=== PATIENT | female | born 1975 | race Caucasian/White ===

== ENCOUNTER 2016-07-25 19:34 | Emergency (ER) | payer SELFPAY ==
[~2016-07-25] VITALS: Ht 177.8 cm; Wt 104.0 kg
[2016-07-25 19:34] VITALS: Ht 177.8 cm; Wt 104.0 kg
--- NOTE | 2016-07-25 19:35 | NUR ---
PROVIDER DR MARTINEZ IN ROOM TO SEE PT
--- OUTSIDE RECORDS SUMMARY | 2016-07-25 19:38 | XMS REPORT | Continuity of Care Document ---
Author Author [facility] Address Unknown Phone Unavailable Allergies Active Description Code Type Severity Reaction Onset Reported/Identified Relationship to Patient Clinical Status Yes No Known Drug Allergies [id number] Drug Allergy Unknown N/ A 03/22/2013 Yes Iodinated Contrast Media - IV Dye [id number] Drug Allergy Moderate Rash 11/25/2014 Yes latex [id number] Drug Allergy Mild rash 03/06/2015 Medications Problems Date Dx Coded Attending Type Code Diagnosis Diagnosed By 03/22/2013 EDGARDO YIN, CESAR Fitch Ot 487.1 03/22/2013 CESAR REYNOSO MD Ot 490 03/22/2013 CESAR REYNOSO MD Ot 780.60 09/13/2014 JANNIE BARKLEY MD Ot 782.3 10/08/2014 MACY REYES MD Ot 785.2 11/13/2014 GATO BOUDREAUX MD, MACY Pal Ot 785.2 11/13/2014 Winston Baca S Ot 424.0 11/13/2014 Toon, Winston S Ot V15.1 11/13/2014 Toon, Winston S Ot V57.89 11/13/2014 GATO BOUDREAUX MD, MACY Pal Ot 285.9 11/13/2014 MACY REYES MD Ot 305.1 11/13/2014 MACY REYES MD Ot 424.0 11/13/2014 MACY REYES MD Ot 429.9 11/26/2014 EVA BHATIA MD Ot 401.9 11/26/2014 EVA BHATIA MD Ot 428.0 11/26/2014 EVA BHATIA MD Ot 782.0 11/26/2014 EVA BHATIA MD Ot 786.50 11/26/2014 EVA BHATIA MD Ot 786.59 11/30/2014 EVA BHATIA MD Ot 786.50 12/02/2014 Winston Baca S Ot 424.0 12/02/2014 Toon, Winston S Ot V15.1 12/02/2014 Toon, Winston S Ot V57.89 12/05/2014 Toon, Winston S Ot 424.0 12/05/2014 Toon, Winston S Ot V15.1 12/05/2014 Toon, Winston S Ot V57.89 12/08/2014 Toon, Winston S Ot 424.0 12/08/2014 Toon, Winston S Ot V15.1 12/08/2014 Toon, Winston S Ot V57.89 12/10/2014 Toon, Winston S Ot 424.0 12/10/2014 Toon, Winston S Ot V15.1 12/10/2014 Toon, Winston S Ot V57.89 01/18/2015 FRANKLIN YIN, HANNAH Garzon Ot I42.0 01/18/2015 FRANKLIN YIN, HANNAH Garzon Ot I49.3 01/18/2015 HANNAH REID MD Ot R07.9 03/06/2015 Toon, Winston S Ot 424.0 03/06/2015 Toon, Winston S Ot V15.1 03/06/2015 Toon, Winston S Ot V57.89 03/06/2015 JANNETTE YIN, EVA Cuevas Ot I10 03/06/2015 EVA BHATIA MD Ot I42.9 03/06/2015 EVA BHATIA MD Ot I44.7 03/06/2015 EVA BHATIA MD Ot I49.3 03/06/2015 EVA BHATIA MD Ot I95.9 03/06/2015 EVA BHATIA MD Ot R51 03/23/2015 MACY REYES MD Ot I34.0 03/23/2015 MACY REYES MD Ot I51.9 03/23/2015 MACY REYES MD Ot R05 03/23/2015 MACY REYES MD Ot R06.00 Procedures Results Encounters ACCT No. Visit Date/Time Discharge Status Pt. Type Provider Facility Loc./Unit Complaint [id number] 03/06/2015 21:57:00 2015 23:52:00 DIS Emergency JANNETTE YIN, [facility] ED [id number] 02/04/2015 10:38:00 2014 23:59:59 CLS Outpatient GATO BOUDREAUX MD, [facility] [id number] 01/17/2015 20:27:00 2014 01:21:00 DIS Emergency FRANKLIN YIN, HANNAH Garzon [facility] ED [id number] 12/04/2014 09:30:00 2014 23:59:59 CLS Preadmit [facility] [id number] 10/30/2014 09:30:00 2014 00:01:00 [facility] [id number] 11/26/2014 01:50:00 2014 23:59:59 CLS Outpatient JANNETTE YIN, [facility] [id number] 11/25/2014 22:58:00 2014 02:10:00 DIS Emergency JANNETTE YIN, [facility] ED [id number] 10/26/2014 09:35:00 2014 23:59:59 CLS Outpatient GATO BOUDREAUX MD, [facility] LAB [id number] 09/17/2014 10:54:00 2014 23:59:59 CLS Outpatient GATO BOUDREAUX MD, [facility] LAB [id number] 09/13/2014 20:25:00 2014 23:13:00 DIS Emergency FILIPPO YIN, JANNIE Shameka [facility] ED [id number] 03/22/2013 08:28:00 2013 09:40:00 DIS Emergency EDGARDO YIN, CESAR Fitch [facility] ED
--- OUTSIDE RECORDS SUMMARY | 2016-07-25 19:38 | XMS REPORT | Continuity Of Care Document ---
Author Author [facility] Organization [facility] Address [address] [place] [address] Phone Care Team Providers Care Keyboard Specialist Name Role Phone Savanah ROBB MD AT [facility], [facility] Results Lab Results Visit/Account #[id number] (October 12, 2014 4:58am - October 18, 2014 11:25am) Test Result Date/Time CG8 ARTERIAL 21102-9: STYPE ART October 12, 2014 7:46am ART October 12, 2014 8:16am ART October 12, 2014 8:34am ART October 12, 2014 9:10am ART October 12, 2014 9:31am ART October 12, 2014 10:02am ART October 12, 2014 10:18am ART October 12, 2014 10:31am ART October 12, 2014 10:44am ART October 12, 2014 11:42am HEMOGLOBIN(12.0-16.0 G/DL) 12.2 G/DL October 12, 2014 7:46am 10.9 G/DL October 12, 2014 8:16am 8.8 G/DL Result Comments: CPB Applied October 12, 2014 8:34am 7.5 G/DL Result Comments: CPB Applied October 12, 2014 9:10am 8.8 G/DL Result Comments: CPB Applied October 12, 2014 9:31am 8.8 G/DL Result Comments: CPB Applied October 12, 2014 10:02am 8.8 G/DL Result Comments: CPB Applied October 12, 2014 10:18am 8.2 G/DL Result Comments: CPB Applied October 12, 2014 10:31am 8.5 G/DL Result Comments: CPB Applied October 12, 2014 10:44am 9.5 G/DL Result Comments: CPB Applied October 12, 2014 11:42am HEMATOCRIT(36.0-48.0 %) 36.0 % October 12, 2014 7:46am 32.0 % October 12, 2014 8:16am 26.0 % Result Comments: CPB Applied October 12, 2014 8:34am 22.0 % Result Comments: CPB Applied October 12, 2014 9:10am 26.0 % Result Comments: CPB Applied October 12, 2014 9:31am 26.0 % Result Comments: CPB Applied October 12, 2014 10:02am 26.0 % Result Comments: CPB Applied October 12, 2014 10:18am 24.0 % Result Comments: CPB Applied October 12, 2014 10:31am 25.0 % Result Comments: CPB Applied October 12, 2014 10:44am 28.0 % Result Comments: CPB Applied October 12, 2014 11:42am 23648-6: GLUCOSE(70-110 MG/DL) 117 MG/DL October 12, 2014 7:46am 122 MG/DL October 12, 2014 8:16am 111 MG/DL October 12, 2014 8:34am 125 MG/DL October 12, 2014 9:10am 137 MG/DL October 12, 2014 9:31am 172 MG/DL October 12, 2014 10:02am 176 MG/DL October 12, 2014 10:18am 167 MG/DL October 12, 2014 10:31am 159 MG/DL October 12, 2014 10:44am 219 MG/DL October 12, 2014 11:42am 13869-7: SODIUM(135-145 MMOL/L) 136 MMOL/L October 12, 2014 7:46am 135 MMOL/L October 12, 2014 8:16am 131 MMOL/L October 12, 2014 8:34am 128 MMOL/L October 12, 2014 9:10am 129 MMOL/L October 12, 2014 9:31am 127 MMOL/L October 12, 2014 10:02am 128 MMOL/L October 12, 2014 10:18am 131 MMOL/L October 12, 2014 10:31am 129 MMOL/L October 12, 2014 10:44am 135 MMOL/L October 12, 2014 11:42am 93817-3: POTASSIUM(3.6-5.0 MMOL/L) 3.6 MMOL/L October 12, 2014 7:46am 3.6 MMOL/L October 12, 2014 8:16am 3.6 MMOL/L October 12, 2014 8:34am 5.3 MMOL/L October 12, 2014 9:10am 6.0 MMOL/L October 12, 2014 9:31am 8.0 MMOL/L October 12, 2014 10:02am 7.9 MMOL/L October 12, 2014 10:18am 6.8 MMOL/L October 12, 2014 10:31am 6.1 MMOL/L October 12, 2014 10:44am 4.4 MMOL/L October 12, 2014 11:42am IONIZED CALCIUM(1.12-1.32 mmol/L) 1.15 mmol/L October 12, 2014 7:46am 1.09 mmol/L October 12, 2014 8:16am 0.93 mmol/L October 12, 2014 8:34am 0.83 mmol/L October 12, 2014 9:10am 0.83 mmol/L October 12, 2014 9:31am 0.83 mmol/L October 12, 2014 10:02am 0.82 mmol/L October 12, 2014 10:18am 0.76 mmol/L October 12, 2014 10:31am 1.08 mmol/L October 12, 2014 10:44am 1.03 mmol/L October 12, 2014 11:42am 00031-3: PH(7.35-7.45) 7.298 October 12, 2014 7:46am 7.248 October 12, 2014 8:16am 7.329 October 12, 2014 8:34am 7.360 October 12, 2014 9:10am 7.363 October 12, 2014 9:31am 7.418 October 12, 2014 10:02am 7.427 October 12, 2014 10:18am 7.495 October 12, 2014 10:31am 7.442 October 12, 2014 10:44am 7.358 October 12, 2014 11:42am PCO2(35-45 mmHg) 48.7 mmHg October 12, 2014 7:46am 55.8 mmHg October 12, 2014 8:16am 43.3 mmHg October 12, 2014 8:34am 43.3 mmHg October 12, 2014 9:10am 42.5 mmHg October 12, 2014 9:31am 33.4 mmHg October 12, 2014 10:02am 32.7 mmHg October 12, 2014 10:18am 32.1 mmHg October 12, 2014 10:31am 35.8 mmHg October 12, 2014 10:44am 43.2 mmHg October 12, 2014 11:42am 85918-8: PO2(80-105 mmHg) 483 mmHg October 12, 2014 7:46am 392 mmHg October 12, 2014 8:16am 574 mmHg October 12, 2014 8:34am 605 mmHg October 12, 2014 9:10am 643 mmHg October 12, 2014 9:31am 378 mmHg October 12, 2014 10:02am 330 mmHg October 12, 2014 10:18am 331 mmHg October 12, 2014 10:31am 359 mmHg October 12, 2014 10:44am 272 mmHg October 12, 2014 11:42am HCO3(22-26 MMOL/L) 23.8 MMOL/L October 12, 2014 7:46am 24.3 MMOL/L October 12, 2014 8:16am 22.8 MMOL/L October 12, 2014 8:34am 24.5 MMOL/L October 12, 2014 9:10am 24.2 MMOL/L October 12, 2014 9:31am 21.6 MMOL/L October 12, 2014 10:02am 21.6 MMOL/L October 12, 2014 10:18am 24.7 MMOL/L October 12, 2014 10:31am 24.4 MMOL/L October 12, 2014 10:44am 24.2 MMOL/L October 12, 2014 11:42am TCO2(23-27 MMOL/L) 25 MMOL/L October 12, 2014 7:46am 26 MMOL/L October 12, 2014 8:16am 24 MMOL/L October 12, 2014 8:34am 26 MMOL/L October 12, 2014 9:10am 25 MMOL/L October 12, 2014 9:31am 23 MMOL/L October 12, 2014 10:02am 23 MMOL/L October 12, 2014 10:18am 26 MMOL/L October 12, 2014 10:31am 25 MMOL/L October 12, 2014 10:44am 26 MMOL/L October 12, 2014 11:42am SO2C(95-98 %) 100 % October 12, 2014 7:46am 100 % October 12, 2014 8:16am 100 % October 12, 2014 8:34am 100 % October 12, 2014 9:10am 100 % October 12, 2014 9:31am 100 % October 12, 2014 10:02am 100 % October 12, 2014 10:18am 100 % October 12, 2014 10:31am 100 % October 12, 2014 10:44am 100 % October 12, 2014 11:42am 1922-4: ABG BASE DEFICIT(0-30 mmol/L) 3 mmol/L October 12, 2014 7:46am 3 mmol/L October 12, 2014 8:16am 3 mmol/L October 12, 2014 8:34am 1 mmol/L October 12, 2014 9:10am 1 mmol/L October 12, 2014 9:31am 3 mmol/L October 12, 2014 10:02am 3 mmol/L October 12, 2014 10:18am 1 mmol/L October 12, 2014 11:42am 1927-3: ABG BASE EXCESS(0-30 mmol/L) 1 mmol/L October 12, 2014 10:31am 0 mmol/L October 12, 2014 10:44am CG8AR 89276-7: STYPE ART October 12, 2014 1:14pm HEMOGLOBIN(12.0-16.0 G/DL) 11.2 G/DL October 12, 2014 1:14pm HEMATOCRIT(36.0-48.0 %) 33.0 % October 12, 2014 1:14pm 09740-5: GLUCOSE(70-110 MG/DL) 260 MG/DL October 12, 2014 1:14pm 36820-5: SODIUM(135-145 MMOL/L) 135 MMOL/L October 12, 2014 1:14pm 60413-9: POTASSIUM(3.6-5.0 MMOL/L) 4.5 MMOL/L October 12, 2014 1:14pm IONIZED CALCIUM(1.12-1.32 mmol/L) 0.97 mmol/L October 12, 2014 1:14pm 70232-9: PH(7.35-7.45) 7.389 October 12, 2014 1:14pm PCO2(35-45 mmHg) 37.7 mmHg October 12, 2014 1:14pm 30480-8: PO2(80-105 mmHg) 105 mmHg October 12, 2014 1:14pm HCO3(22-26 MMOL/L) 22.8 MMOL/L October 12, 2014 1:14pm TCO2(23-27 MMOL/L) 24 MMOL/L October 12, 2014 1:14pm SO2C(95-98 %) 98 % October 12, 2014 1:14pm 1922-4: ABG BASE DEFICIT(0-30 mmol/L) 2 mmol/L October 12, 2014 1:14pm FIO2(%) 70 % October 12, 2014 1:14pm PEEP(CM H2O) 5 CM H2O October 12, 2014 1:14pm TIDAL VOLUME(ML) 800 ML October 12, 2014 1:14pm POCGL POCGL(70-105 MG/DL) 256 MG/DL October 12, 2014 3:44pm 232 MG/DL October 12, 2014 4:47pm 167 MG/DL October 12, 2014 6:06pm 129 MG/DL October 12, 2014 7:06pm 158 MG/DL October 12, 2014 8:12pm 121 MG/DL October 12, 2014 9:10pm 101 MG/DL October 12, 2014 10:14pm 164 MG/DL October 12, 2014 11:16pm 207 MG/DL October 13, 2014 12:15am 98 MG/DL October 13, 2014 1:02am 91 MG/DL October 13, 2014 2:04am 90 MG/DL October 13, 2014 3:06am 104 MG/DL October 13, 2014 4:11am 101 MG/DL October 13, 2014 5:18am 102 MG/DL October 13, 2014 6:15am 113 MG/DL October 13, 2014 7:13am 112 MG/DL October 13, 2014 8:03am 131 MG/DL October 13, 2014 10:42am 117 MG/DL October 13, 2014 5:02pm 115 MG/DL October 13, 2014 9:32pm 125 MG/DL October 14, 2014 5:42am 3184-9: ACTIVATED CLOTTING TIME 3184-9: ACTIVATED CLOTTING TIME(SECONDS) 138 SECONDS Result Comments: REFERENCE RANGES: BASELINE 74-125 SECONDS HEPARIN TREATED CCL 300-400 SECONDS HEPARIN TREATED CVOR >400 SECONDS October 12, 2014 7:45am 551 SECONDS Result Comments: REFERENCE RANGES: BASELINE 74-125 SECONDS HEPARIN TREATED CCL 300-400 SECONDS HEPARIN TREATED CVOR >400 SECONDS October 12, 2014 8:15am 568 SECONDS Result Comments: REFERENCE RANGES: BASELINE 74-125 SECONDS HEPARIN TREATED CCL 300-400 SECONDS HEPARIN TREATED CVOR >400 SECONDS October 12, 2014 8:34am 613 SECONDS Result Comments: REFERENCE RANGES: BASELINE 74-125 SECONDS HEPARIN TREATED CCL 300-400 SECONDS HEPARIN TREATED CVOR >400 SECONDS October 12, 2014 9:10am 641 SECONDS Result Comments: REFERENCE RANGES: BASELINE 74-125 SECONDS HEPARIN TREATED CCL 300-400 SECONDS HEPARIN TREATED CVOR >400 SECONDS October 12, 2014 9:30am 469 SECONDS Result Comments: REFERENCE RANGES: BASELINE 74-125 SECONDS HEPARIN TREATED CCL 300-400 SECONDS HEPARIN TREATED CVOR >400 SECONDS October 12, 2014 10:02am 531 SECONDS Result Comments: REFERENCE RANGES: BASELINE 74-125 SECONDS HEPARIN TREATED CCL 300-400 SECONDS HEPARIN TREATED CVOR >400 SECONDS October 12, 2014 10:18am 117 SECONDS Result Comments: REFERENCE RANGES: BASELINE 74-125 SECONDS HEPARIN TREATED CCL 300-400 SECONDS HEPARIN TREATED CVOR >400 SECONDS October 12, 2014 11:41am 90933-4: COMPLETE BLOOD COUNT WHITE BLOOD COUNT(4.0-11.0 10E3/UL) 22.3 10E3/UL October 13, 2014 4:10am 14.6 10E3/UL October 14, 2014 5:38am 7.0 10E3/UL October 15, 2014 3:57am 7.8 10E3/UL October 16, 2014 4:09am 5.8 10E3/UL October 17, 2014 7:24am RED BLOOD COUNT(4.00-5.20 10E6/UL) 3.05 10E6/UL October 13, 2014 4:10am 3.23 10E6/UL October 14, 2014 5:38am 2.89 10E6/UL October 15, 2014 3:57am 2.89 10E6/UL October 16, 2014 4:09am 2.92 10E6/UL October 17, 2014 7:24am HEMOGLOBIN(12.0-16.0 G/DL) 8.9 G/DL October 13, 2014 4:10am 9.3 G/DL October 14, 2014 5:38am 8.4 G/DL October 15, 2014 3:57am 8.3 G/DL October 16, 2014 4:09am 8.4 G/DL October 17, 2014 7:24am HEMATOCRIT(36.0-46.0 %) 27.9 % October 13, 2014 4:10am 29.7 % October 14, 2014 5:38am 26.4 % October 15, 2014 3:57am 26.0 % October 16, 2014 4:09am 26.1 % October 17, 2014 7:24am MEAN CORPUSCULAR VOLUME(82.0-100.0 FL) 91.5 FL October 13, 2014 4:10am 92.0 FL October 14, 2014 5:38am 91.3 FL October 15, 2014 3:57am 90.0 FL October 16, 2014 4:09am 89.4 FL October 17, 2014 7:24am 82584-0: MEAN CORPUSCULAR HEMOGLOBIN(26.0-34.0 PG) 29.2 PG October 13, 2014 4:10am 28.8 PG October 14, 2014 5:38am 29.1 PG October 15, 2014 3:57am 28.7 PG October 16, 2014 4:09am 28.8 PG October 17, 2014 7:24am MEAN CORPUSCULAR HGB CONC(31.5-36.5 G/DL) 31.9 G/DL October 13, 2014 4:10am 31.3 G/DL October 14, 2014 5:38am 31.8 G/DL October 15, 2014 3:57am 31.9 G/DL October 16, 2014 4:09am 32.2 G/DL October 17, 2014 7:24am RED CELL DISTRIBUTION WIDTH(11.5-14.5 %) 15.5 % October 13, 2014 4:10am 15.7 % October 14, 2014 5:38am 15.6 % October 15, 2014 3:57am 15.5 % October 16, 2014 4:09am 15.7 % October 17, 2014 7:24am 777-3: PLATELET COUNT(150-450 10E3/UL) 128 10E3/UL October 13, 2014 4:10am 105 10E3/UL October 14, 2014 5:38am 88 10E3/UL October 15, 2014 3:57am 112 10E3/UL October 16, 2014 4:09am 132 10E3/UL October 17, 2014 7:24am MEAN PLATELET VOLUME(8.2-12.4 FL) 10.2 FL October 13, 2014 4:10am 10.8 FL October 14, 2014 5:38am 10.4 FL October 15, 2014 3:57am 10.3 FL October 16, 2014 4:09am 10.1 FL October 17, 2014 7:24am NUCLEATED RBCS (AUTO)(0-0 %) 0 % October 13, 2014 4:10am 0 % October 14, 2014 5:38am 0 % October 15, 2014 3:57am 0 % October 16, 2014 4:09am 0 % October 17, 2014 7:24am 777-3: PLATELET COUNT 777-3: PLATELET COUNT(150-450 10E3/UL) 164 10E3/UL October 12, 2014 11:38am 171 10E3/UL October 12, 2014 1:11pm 17249-1: PROTHROMBIN TIME WITH INR PROTHROMBIN TIME(12.1-14.0 SEC) 18.9 SEC October 12, 2014 11:38am 02381-0: INR 1.56 Result Comments: INR reference interval applies to patients on anticoagulant therapy. Suggested INR therapeutic range for oral anticoagulant therapy: (Stabilized anticoagulated patients) Routine Therapy: 2.0 to 3.0 Recurrent Myocardial Infarction: 2.5 to 3.5 Mechanical Prosthetic Valves: 2.5 to 3.5 October 12, 2014 11:38am PARTIAL THROMBOPLASTIN TIME PARTIAL THROMBOPLASTIN TIME(22.2-37.4 SEC) 37.1 SEC October 12, 2014 11:38am FIBRINOGEN FIBRINOGEN(229-463 MG/DL) 216 MG/DL October 12, 2014 11:38am URINALYSIS, DIPSTICK INF CNTRL 5778-6: COLOR,URINE YELLOW October 12, 2014 7:05am 48632-0: CLARITY,URINE SL CLOUDY October 12, 2014 7:05am GLUCOSE, URINE(NEGATIVE MG/DL) NEGATIVE MG/DL October 12, 2014 7:05am URINE BILIRUBIN(NEGATIVE) NEGATIVE October 12, 2014 7:05am 44345-7: KETONES,URINE(NEGATIVE MG/DL) NEGATIVE MG/DL October 12, 2014 7:05am 2965-2: URINE SPECIFIC GRAVITY(1.001-1.035) 1.025 October 12, 2014 7:05am 79073-8: URINE BLOOD(NEGATIVE) NEGATIVE October 12, 2014 7:05am 2756-5: URINE PH(5.0-9.0) 5.0 October 12, 2014 7:05am URINE PROTEIN(Less than 20 MG/DL) NEGATIVE MG/DL October 12, 2014 7:05am URINE UROBILINOGEN(0.2-1.0 MG/DL) 0.2 MG/DL October 12, 2014 7:05am URINE NITRITE(NEGATIVE) NEGATIVE October 12, 2014 7:05am 5799-2: LEUKOCYTE ESTERASE ,URINE(NEGATIVE) NEGATIVE October 12, 2014 7:05am 630-4: URINE CULTURE NOT INDICATED October 12, 2014 7:05am BASIC METABOLIC PANEL 68604-8: GLUCOSE(70-110 MG/DL) 102 MG/DL October 13, 2014 4:10am 121 MG/DL October 14, 2014 5:38am 95 MG/DL October 15, 2014 3:57am 102 MG/DL October 16, 2014 4:09am 86 MG/DL October 17, 2014 7:23am 88 MG/DL October 18, 2014 6:17am BLOOD UREA NITROGEN(6-20 MG/DL) 15 MG/DL October 13, 2014 4:10am 13 MG/DL October 14, 2014 5:38am 14 MG/DL October 15, 2014 3:57am 16 MG/DL October 16, 2014 4:09am 18 MG/DL October 17, 2014 7:23am 24 MG/DL October 18, 2014 6:17am 74928-5: CREATININE(0.50-1.20 MG/DL) 0.75 MG/DL October 13, 2014 4:10am 0.67 MG/DL October 14, 2014 5:38am 0.66 MG/DL October 15, 2014 3:57am 0.67 MG/DL October 16, 2014 4:09am 0.70 MG/DL October 17, 2014 7:23am 0.91 MG/DL October 18, 2014 6:17am 17920-1: EST GLOMERULAR FILTRATION RATE(Greater than or equal to 60) Greater than or equal to 60 Result Comments: If the patient is of -[place] descent/extraction multiply the eGFR value by 1.212 to obtain the actual eGFR. >=60 mg/dL Normal 30-59 mg/dL Moderate Kidney Disease 15-29 mg/dL Severe Kidney Disease <15 mg/dL Kidney Failure October 13, 2014 4:10am Greater than or equal to 60 Result Comments: If the patient is of -[place] descent/extraction multiply the eGFR value by 1.212 to obtain the actual eGFR. >=60 mg/dL Normal 30-59 mg/dL Moderate Kidney Disease 15-29 mg/dL Severe Kidney Disease <15 mg/dL Kidney Failure October 14, 2014 5:38am Greater than or equal to 60 Result Comments: If the patient is of -[place] descent/extraction multiply the eGFR value by 1.212 to obtain the actual eGFR. >=60 mg/dL Normal 30-59 mg/dL Moderate Kidney Disease 15-29 mg/dL Severe Kidney Disease <15 mg/dL Kidney Failure October 15, 2014 3:57am Greater than or equal to 60 Result Comments: If the patient is of -[place] descent/extraction multiply the eGFR value by 1.212 to obtain the actual eGFR. >=60 mg/dL Normal 30-59 mg/dL Moderate Kidney Disease 15-29 mg/dL Severe Kidney Disease <15 mg/dL Kidney Failure October 16, 2014 4:09am Greater than or equal to 60 Result Comments: If the patient is of -[place] descent/extraction multiply the eGFR value by 1.212 to obtain the actual eGFR. >=60 mg/dL Normal 30-59 mg/dL Moderate Kidney Disease 15-29 mg/dL Severe Kidney Disease <15 mg/dL Kidney Failure October 17, 2014 7:23am Greater than or equal to 60 Result Comments: If the patient is of -[place] descent/extraction multiply the eGFR value by 1.212 to obtain the actual eGFR. >=60 mg/dL Normal 30-59 mg/dL Moderate Kidney Disease 15-29 mg/dL Severe Kidney Disease <15 mg/dL Kidney Failure October 18, 2014 6:17am BUN CREATININE RATIO(10.0-20.0 RATIO) 20.0 RATIO October 13, 2014 4:10am 19.0 RATIO October 14, 2014 5:38am 21.0 RATIO October 15, 2014 3:57am 24.0 RATIO October 16, 2014 4:09am 26.0 RATIO October 17, 2014 7:23am 26.0 RATIO October 18, 2014 6:17am 64605-8: SODIUM(135-145 MMOL/L) 137 MMOL/L October 13, 2014 4:10am 132 MMOL/L October 14, 2014 5:38am 134 MMOL/L October 15, 2014 3:57am 132 MMOL/L October 16, 2014 4:09am 134 MMOL/L October 17, 2014 7:23am 139 MMOL/L October 18, 2014 6:17am 17054-0: POTASSIUM(3.6-5.0 MMOL/L) 3.8 MMOL/L October 13, 2014 4:10am 3.5 MMOL/L October 14, 2014 5:38am 3.6 MMOL/L October 15, 2014 3:57am 3.9 MMOL/L October 16, 2014 4:09am 3.8 MMOL/L October 17, 2014 7:23am 4.1 MMOL/L October 18, 2014 6:17am 67536-5: CHLORIDE(101-111 MMOL/L) 107 MMOL/L October 13, 2014 4:10am 99 MMOL/L October 14, 2014 5:38am 103 MMOL/L October 15, 2014 3:57am 101 MMOL/L October 16, 2014 4:09am 102 MMOL/L October 17, 2014 7:23am 103 MMOL/L October 18, 2014 6:17am 8-9: CO2(21-31 MMOL/L) 23.0 MMOL/L October 13, 2014 4:10am 26.0 MMOL/L October 14, 2014 5:38am 28.0 MMOL/L October 15, 2014 3:57am 26.0 MMOL/L October 16, 2014 4:09am 27.0 MMOL/L October 17, 2014 7:23am 29.0 MMOL/L October 18, 2014 6:17am 96347-7: ANION GAP(8-18) 11 October 13, 2014 4:10am 11 October 14, 2014 5:38am 7 October 15, 2014 3:57am 9 October 16, 2014 4:09am 9 October 17, 2014 7:23am 11 October 18, 2014 6:17am OSMO CALCULATED(270.0-290.0) 274.8 October 13, 2014 4:10am 265.9 October 14, 2014 5:38am 268.5 October 15, 2014 3:57am 265.9 October 16, 2014 4:09am 269.4 October 17, 2014 7:23am 281.0 October 18, 2014 6:17am CALCIUM(8.5-10.5 MG/DL) 7.8 MG/DL October 13, 2014 4:10am 7.9 MG/DL October 14, 2014 5:38am 7.9 MG/DL October 15, 2014 3:57am 8.0 MG/DL October 16, 2014 4:09am 8.4 MG/DL October 17, 2014 7:23am 8.8 MG/DL October 18, 2014 6:17am BLOOD UREA NITROGEN BLOOD UREA NITROGEN(6-20 MG/DL) 18 MG/DL October 12, 2014 1:11pm 83504-5: CREATININE 99089-7: CREATININE(0.50-1.20 MG/DL) 0.97 MG/DL October 12, 2014 1:11pm 99096-5: EST GLOMERULAR FILTRATION RATE(Greater than or equal to 60) Greater than or equal to 60 Result Comments: If the patient is of -[place] descent/extraction multiply the eGFR value by 1.212 to obtain the actual eGFR. >=60 mg/dL Normal 30-59 mg/dL Moderate Kidney Disease 15-29 mg/dL Severe Kidney Disease <15 mg/dL Kidney Failure October 12, 2014 1:11pm 28193-3: POTASSIUM 69464-0: POTASSIUM(3.6-5.0 MMOL/L) 3.9 MMOL/L October 13, 2014 8:01am 3.8 MMOL/L October 14, 2014 9:52am 4.0 MMOL/L October 14, 2014 1:40pm 3.8 MMOL/L October 15, 2014 7:24am 76173-8: MAGNESIUM 82736-9: MAGNESIUM(1.8-2.5 MG/DL) 3.3 MG/DL October 12, 2014 1:11pm 2.7 MG/DL October 13, 2014 4:10am 2.0 MG/DL October 15, 2014 3:57am 1.8 MG/DL October 17, 2014 7:24am IONIZED CALCIUM IONIZED CALCIUM(1.12-1.32 mmol/L) 1.03 mmol/L October 13, 2014 4:10am 1.05 mmol/L October 14, 2014 5:38am 1.05 mmol/L October 15, 2014 3:57am 1.13 mmol/L October 16, 2014 4:10am SERUM HCG, QUALITATIVE 0-5: SERUM HCG, QUALITATIVE(NEGATIVE) NEGATIVE October 12, 2014 6:35am HEPARIN INDUCED PLATELET AB HEPARIN INDUCED PLATELET AB RESULT REC'D October 15, 2014 9:32am Microbiology Results Visit/Account #[id number] (October 12, 2014 4:58am - October 18, 2014 11:25am) Procedure Result 32254-3: MRSA SCREEN FOR INFEC CONTROL 39680-2: MRSA SCREEN FOR INFEC CONTROL Result Instance On October 12, 2014 1:51pm Source: [facility] Special Result Comments: No growth Bloodbank Results Visit/Account #[id number] (October 12, 2014 4:58am - October 18, 2014 11:25am) Test Result ABO/RH 93597-3: BLOOD TYPE O POSITIVE on October 12, 2014 6:35am ANTIBODY SCREEN ANTIBODY SCREEN NEGATIVE on October 12, 2014 6:35am Allergies and Adverse Reactions Allergies and Adverse Reactions Patient Unit Number: [id number] Agent Type Reaction Severity Status IODINATED CONTRAST MEDIA - IV DYE Drug Allergy rash, hives, itching Moderate Active LATEX Drug Allergy rash Moderate Active Problem List Problem List Visit/Account #[id number] (October 12, 2014 4:58am - October 18, 2014 11:25am) Acute Problems: Code/Condition Comments Documented Start Date Documented Resolved Date Code (s) Postoperative anemia due to acute blood loss ICD10: D62 Postoperative anemia due to acute blood loss ICD9: 285.1 Postoperative anemia due to acute blood loss SNOMED: 480936722 Postoperative anemia due to acute blood loss Thrombocytopenia ICD10: D69.6 Thrombocytopenia ICD9: 287.5 Thrombocytopenia SNOMED: 778464121 Thrombocytopenia Hypokalemia ICD10: E87.6 Hypokalemia ICD9: 276.8 Hypokalemia SNOMED: 67197252 Hypokalemia Chronic Problems: Mitral valve regurgitation ICD10: I34.0 Mitral valve insufficiency ICD9: 424.0 Mitral valve insufficiency SNOMED: 22747830 Mitral valve insufficiency Depression ICD10: F32.9 Depression ICD9: 311 Depression SNOMED: 71589678 Depression Plan of Care Plan Of Care Visit/Account #[id number] (October 12, 2014 4:58am - October 18, 2014 11:25am) Patient Instructions Instructions Anemia DI for Mitral Valve Replacement Aspirin Amiodarone Lisinopril Carvedilol Hydrocodone Vital Signs Vital Signs Visit/Account #[id number] (October 12, 2014 4:58am - October 18, 2014 11:25am) Sign First Result Last Result Code(s) Blood Pressure 115/ 58 mm[Hg] On October 12, 2014 1:05pm 111/ 72 mm[Hg] On October 18, 2014 9:37am 8480-6 BP Systolic Heart Rate/Pulse Pulse Rate (adult): 71 /min On October 12, 2014 1:05pm Pulse Rate (adult): 76 /min On October 18, 2014 9:37am 8867-4 Heart Rate 8893-0 Pulse rate Respiratory Rate Respiratory Rate: 14 /min On October 12, 2014 1:05pm Respiratory Rate: 16 /min On October 18, 2014 9:37am 9279-1 Respiratory rate Temperature in Fahrenheit Temperature (Fahrenheit): 97.1 [degF] On October 12, 2014 5:32am Temperature (Fahrenheit): 98.4 [degF] On October 18, 2014 9:37am 8310-5 Body Temperature Functional Status Functional and Cognitive Status No Functional Status Data Medications Home Medications - Medications that the patient was taking prior to arrival at the hospital Visit/Account #[id number] (October 12, 2014 4:58am - October 18, 2014 11:25am) Medication Route Sig/Schedule Precondition/Indication Comments/Instructions Codes PROZAC(FLUoxetine HCL) 20 MG CAPSULE Dose: 20 MG ORAL DAILY Fluoxetine 20 MG Oral Capsule [Prozac] (RxNorm): 831442 PROZAC (FLUoxetine HCL) NDC: 19911043317 LIPITOR(ATORVASTATIN) 10 MG TAB Dose: 10 MG ORAL DAILY AT [facility] atorvastatin 10 MG Oral Tablet [Lipitor] (RxNorm): 077026 LIPITOR (ATORVASTATIN) NDC: 06013324128 TYLENOL EXTRA STRENGTH(ACETAMINOPHEN) 500 MG TABLET Dose: 500 MG ORAL EVERY 6 HOURS PAIN OR FEVER TYLENOL EXTRA STRENGTH (ACETAMINOPHEN) NDC: 57215131191 IBUPROFEN(IBUPROFEN) 200 MG TABLET Dose: 200 MG ORAL NEEDED PAIN Ibuprofen 200 MG Oral Tablet (RxNorm): 572412 IBUPROFEN (IBUPROFEN) NDC: 95435479543 ALDACTONE(SPIRONOLACTONE) 25 MG TABLET Dose: 12.5 MG ORAL DAILY AT [facility] Spironolactone 25 MG Oral Tablet [Aldactone] (RxNorm): 462003 ALDACTONE (SPIRONOLACTONE) NDC: 97390978899 PRINIVIL(LISINOPRIL) 10 MG TABLET Dose: 10 MG ORAL DAILY AT [facility] Lisinopril 10 MG Oral Tablet [Prinivil] (RxNorm): 789044 PRINIVIL (LISINOPRIL) NDC: 37696182617 LASIX(FUROSEMIDE) 20 MG TABLET Dose: 20 MG ORAL DAILY WITH SUPPER Furosemide 20 MG Oral Tablet [Lasix] (RxNorm): 276102 LASIX (FUROSEMIDE) NDC: 97416572017 COREG(CARVEDILOL) 12.5 MG TABLET Dose: 12.5 MG ORAL WITH BREAKFAST & SUPPER carvedilol 12.5 MG Oral Tablet [Coreg] (RxNorm): 701946 COREG (CARVEDILOL) NDC: [id number] WELLBUTRIN SR(BuPROPion HCL) 150 MG TAB Dose: 150 MG ORAL TWICE A DAY 12 HR Bupropion Hydrochloride 150 MG Extended Release Oral Tablet [Wellbutrin ] (RxNorm): 989062 WELLBUTRIN SR (BuPROPion HCL) NDC: 35481120478 LASIX(FUROSEMIDE) 20 MG TABLET Dose: 40 MG ORAL DAILY AT [facility] Furosemide 20 MG Oral Tablet [Lasix] (RxNorm): LASIX (FUROSEMIDE) NDC: 04400653356 CORDARONE(AMIODARONE HCL) 200 MG TAB Dose: 200 MG ORAL TWICE A DAY Amiodarone hydrochloride 200 MG Oral Tablet (RxNorm): 742705 CORDARONE (AMIODARONE HCL) NDC: 49751098014 Aspirin Chew(ASPIRIN) 81 MG TAB Dose: 81 MG ORAL DAILY Aspirin Chew (ASPIRIN) NDC: 47855323955 HYDROcodone BIT/ACETAMINOPHEN 5-325 MG(HYDROcodone BIT/ACETAMINOPHEN) 1 EACH TABLET Dose: 0 TAB ORAL Q4H MODERATE PAIN Acetaminophen 325 MG / Hydrocodone Bitartrate 5 MG Oral Tablet (RxNorm): 807332 HYDROcodone BIT/ACETAMINOPHEN 5-325 MG (HYDROcodone BIT/ACETAMINOPHEN) NDC: 31097971876 ZESTRIL(LISINOPRIL) 2.5 MG TABLET Dose: 2.5 MG ORAL DAILY Lisinopril 2.5 MG Oral Tablet [Zestril] (RxNorm): 437076 ZESTRIL (LISINOPRIL) NDC: 23956961532 Inpatient/Ordered Medications - Medications administered during hospital visit Visit/Account #[id number] (October 12, 2014 4:58am - October 18, 2014 11:25am) Medication Route Sig/Schedule Precondition/Indication Comments/Instructions Codes IV Medication Carriers: ANCEF 2 GM/50 ML(CEFAZOLIN SODIUM/NORMAL SALINE) 2 GM/50 ML INJECTION Dose: 50 ML INTRAVEN .PREOP.Q4H (Rate: 100 MLS/HR Duration: 30 MIN) Clinical Indication: ABX Preop Prophylaxis Label Comments: within 1 hour prior to surgical incision, to be given by anesthesia. Repeat 4 hours into procedure. XYLOCAINE-MPF 1% INJ(LIDOCAINE HCL/PF) 20 MG/2 ML INJECTION Dose: 0.1 ML INTRADERM NEEDED Rx Order Comments: Order placed as verified: Dose Warnings differ from work order clerk Label Comments: For peripheral line insertion site. Lidocaine Hydrochloride 10 MG/ML Injectable Solution [Xylocaine] (RxNorm): 0793735 XYLOCAINE-MPF 1% INJ (LIDOCAINE HCL/PF) NDC: 47602573984 IV Medication Carriers: NORMAL SALINE(SODIUM CHLORIDE) 1000 ML INJECTION Dose: 1000 ML INTRAVEN .Q0M (Rate: 0 MLS/HR Duration: 0 SEC) Rx Order Comments: Order placed as verified: Dose Warnings differ from work order clerk Carriers: Sodium Chloride 0.154 MEQ/ML Injectable Solution (RxNorm): 846002 NORMAL SALINE (SODIUM CHLORIDE) NDC: 44854632222 VERSED INJ(MIDAZOLAM HCL) 2 MG/2 ML INJECTION Dose: 2 ML INTRAVEN .PSCU.PAULIE Rx Order Comments: Order placed as verified: Dose Warnings differ from work order clerk Midazolam 1 MG/ML Injectable Solution (RxNorm): 122980 VERSED INJ (MIDAZOLAM HCL) NDC: 26258688971 ZOFRAN INJ(ONDansetron HCL) 4 MG/2 ML INJECTION Dose: 2 ML INTRAVEN .PSCU.PAULIE Rx Order Comments: Order placed as verified: Dose Warnings differ from work order clerk Ondansetron 2 MG/ML Injectable Solution (RxNorm): 785128 ZOFRAN INJ (ONDansetron HCL) NDC: 07558316867 MARCAINE 0.25% MPF INJ(BUPIVACAINE) 30 ML INJECTION Dose: 90 ML Route .STK-MED Bupivacaine Hydrochloride 2.5 MG/ML Injectable Solution (RxNorm): 4714887 MARCAINE 0.25% MPF INJ (BUPIVACAINE) NDC: 98006056888 IV Medication Carriers: NORMOSOL-R PH 7.4(PARENTERAL ELECTROLYTES) 1000 ML INJECTION Dose: 1000 ML INTRAVEN .Q10H (Rate: 100 MLS/HR Duration: 10 HR) Label Comments: until 0600 first postop day Normosal-R and Plasmalyte A will be interchangable Carriers: Magnesium Chloride 0.41119 MEQ/ML / Potassium Chloride 0.0497 MEQ/ML / Sodium Acetate 0.0163 (RxNorm): 274813 NORMOSOL-R PH 7.4 (PARENTERAL ELECTROLYTES) NDC: 49661608689 IV Medication Carriers: NORMOSOL-R PH 7.4(PARENTERAL ELECTROLYTES) 1000 ML INJECTION Dose: 1000 ML INTRAVEN .Q24H (Rate: 20 MLS/HR Duration: 24 HR) Rx Order Comments: Order filed UNV: Allergies/Duplicates/Interactions differ from work order clerk Label Comments: starting at 0600 first postop day Normosal-R and Plasmalyte A will be interchangable Carriers: Magnesium Chloride 0.68472 MEQ/ML / Potassium Chloride 0.0497 MEQ/ML / Sodium Acetate 0.0163 (RxNorm): 615455 NORMOSOL-R PH 7.4 (PARENTERAL ELECTROLYTES) NDC: 17423166614 IV Medication Carriers: BUMINATE 5% INJ(ALBUMIN HUMAN) 25 GM/500 ML INJECTION Dose: 500 ML INTRAVEN PRN (Rate: 1000 MLS/HR Duration: 30 MIN) HYPOTENION or CVP less than 10 Carriers: Albumin Human, [facility] 50 MG/ML Injectable Solution [Alburx] (RxNorm): 240263 BUMINATE 5% INJ (ALBUMIN HUMAN) NDC: 40108129324 NORCO 5-325(HYDROcodone BIT/ACETAMINOPHEN) 1 TAB TAB Dose: 0 TAB ORAL Q4H PRN Reason: MODERATE PAIN Label Comments: Do not exceed 4000 mg of total acetaminophen per 24 hours Special Dose Instructions: 1-2 TABS Acetaminophen 325 MG / Hydrocodone Bitartrate 5 MG Oral Tablet (RxNorm): 970928 NORCO 5-325 (HYDROcodone BIT/ACETAMINOPHEN) NDC: 32103707463 MORPHINE SULFATE 10 MG/ML INJECTION Dose: 0 ML INTRAVEN Q1H PRN Reason: SEVERE PAIN Special Dose Instructions: 2-8 MG Morphine Sulfate 10 MG/ML Injectable Solution (RxNorm): 992208 (MORPHINE SULFATE) NDC: 18355761177 IV Medication Carriers: NEXTERONE DRIP(AMIODARONE IN DEXTROSE,ISO-OSM) 360 MG/200 ML INJECTION Dose: 200 ML INTRAVEN .Q0M (Rate: 0 MLS/HR Duration: 0 SEC) PRN Reason: CONTINUOUS IV Label Comments: CONC: 1.8 mg/mL. <<use 0.22 Microon IN-LINE filter>> Carriers: Amiodarone hydrochloride 1.8 MG/ML Injectable Solution [Nexterone] (RxNorm): 3015857 NEXTERONE DRIP (AMIODARONE IN DEXTROSE,ISO-OSM) NDC: 49289292744 IV Medication Carriers: ANCEF 2 GM/50 ML(CEFAZOLIN SODIUM/NORMAL SALINE) 2 GM/50 ML INJECTION Dose: 50 ML INTRAVEN Q8S (Rate: 100 MLS/HR Duration: 30 MIN) Clinical Indication: ABX Surgical Postop Rx Order Comments: Order filed UNV: Allergies/Duplicates/Interactions differ from work order clerk Label Comments: refrigerate ZOFRAN INJ(ONDansetron HCL) 4 MG/2 ML INJECTION Dose: 2 ML INTRAVEN Q6H PRN Reason: NAUSEA/VOMITING Ondansetron 2 MG/ML Injectable Solution (RxNorm): 353206 ZOFRAN INJ (ONDansetron HCL) NDC: 71799242186 PROTONIX(PANTOPRAZOLE SOD) 40 MG TAB Dose: 40 MG ORAL 60 MIN BEFORE BKFST Label Comments: use IV if unable to take PO . *For stress ulcer prophylaxis from surgery and aspirin use* pantoprazole 40 MG Delayed Release Oral Tablet [Protonix] (RxNorm): 153699 PROTONIX (PANTOPRAZOLE SOD) NDC: 56138145332 IV Medication Additives: HumuLIN-R(INSULIN HUM R) 100 UNIT/ML INJECTION Dose: 250 UNIT Carriers: NORMAL SALINE(SODIUM CHLORIDE) 250 ML INJECTION Dose: 247.5 ML INTRAVEN .Q0M (Rate: 0 MLS/HR Duration: 0 SEC) PRN Reason: HYPERGLYCEMIA Rx Order Comments: Order filed UNV: Allergies/Duplicates/Interactions differ from work order clerk Label Comments: Conc: 1 unit/mL Give per glucosstabilizer protocol Additives: Regular Insulin, Human 100 UNT/ML Injectable Solution [Novolin R] (RxNorm): 572908 HumuLIN-R (INSULIN HUM R) NDC: 72265493624 Carriers: Sodium Chloride 0.154 MEQ/ML Injectable Solution (RxNorm): 519488 NORMAL SALINE (SODIUM CHLORIDE) NDC: 90678172243 PRAVACHOL(PRAVASTATIN SOD) 40 MG TAB Dose: 40 MG ORAL AT BEDTIME Label Comments: *teratogenic. women should not handle or crush* Pravastatin Sodium 40 MG Oral Tablet (RxNorm): 956991 PRAVACHOL (PRAVASTATIN SOD) NDC: 55445509072 HEPARIN PF 5000 UNIT/0.5 ML SYRINGE Dose: 0.5 ML SUBCUTANEOUSLY EVERY 8 HOURS 0.5 ML heparin sodium, porcine 14005 UNT/ML Prefilled Syringe (RxNorm): 1143603 (HEPARIN PF) NDC: 10974080525 ASPIRIN 81 MG TAB Dose: 81 MG ORAL DAILY Aspirin 81 MG Chewable Tablet (RxNorm): 523385 (ASPIRIN) NDC: 80229288892 IV Medication Carriers: KCL 20 mEq PM(POTASSIUM CHLORIDE) 20 MEQ/50 ML INJECTION Dose: 50 ML INTRAVEN PRN (Rate: 50 MLS/HR Duration: 1 HR) HYPOKALEMIA Label Comments: give via central line If potassium level less than 3 give 1 bag over 1 hours x 3 doses. Recheck K+ 1 hour after infusion If potassium level 3-3.4 give 1 bag over 1 hour x 2 doses. Recheck K+ 1 hour after infusion If potassium level 3.5-3.8 give 1 bag over 1 hour. Recheck K+ 1 hour after infusion If potassium level greater than 3.9 give no potassium Carriers: Potassium Chloride 0.4 MEQ/ML Injectable Solution (RxNorm): 382440 KCL 20 mEq PM (POTASSIUM CHLORIDE) NDC: 59336621169 IV Medication Additives: CALCIUM GLUCONATE 1 GM/10 ML INJECTION Dose: 1 GM Carriers: SODIUM CHLORIDE 50 ML INJECTION Dose: 50 ML INTRAVEN PRN (Rate: 60 MLS/HR Duration: 1 HR) HYPOCALCEMIA Label Comments: If ionized calcium level 1-1.1 mmol/L give 1 gram/50 ml over 1 hour. Recheck serum ionized calcium in AM Additives: Calcium Gluconate 100 MG/ML Injectable Solution (RxNorm): 398146 (CALCIUM GLUCONATE) NDC: 13738539222 Carriers: Sodium Chloride 0.154 MEQ/ML Injectable Solution (RxNorm): 628441 (SODIUM CHLORIDE) NDC: 50238739185 IV Medication Additives: CALCIUM GLUCONATE 1 GM/10 ML INJECTION Dose: 2 GM Carriers: SODIUM CHLORIDE 50 ML INJECTION Dose: 50 ML INTRAVEN PRN (Rate: 35 MLS/HR Duration: 2 HR) HYPOCALCEMIA Rx Order Comments: Order filed UNV: Allergies/Duplicates/Interactions differ from work order clerk Label Comments: If ionized calcium level is 0.8-0.99 mmol/L give 2gm/50 ml over 2 hours. Recheck serum ionized calcium in AM Additives: Calcium Gluconate 100 MG/ML Injectable Solution (RxNorm): 930760 (CALCIUM GLUCONATE) NDC: 43713993592 Carriers: Sodium Chloride 0.154 MEQ/ML Injectable Solution (RxNorm): 003912 (SODIUM CHLORIDE) NDC: 76509642362 IV Medication Carriers: PRECEDEX 400 MCG/100 ML PM(DEXMEDETOMIDINE/SOD CHLOR) 400 MCG/100 ML INJECTION Dose: 100 ML INTRAVEN .Q0M (Rate: 0 MLS/HR Duration: 0 SEC) PRN Reason: CONTINUOUS IV Rx Order Comments: Order filed UNV: Allergies/Duplicates/Interactions differ from work order clerk Label Comments: Conc: 4 mcg/mL Usual dose is 0.2-1 mcg/kg/hr Carriers: Dexmedetomidine 0.004 MG/ML Injectable Solution [Precedex] (RxNorm): 2043079 PRECEDEX 400 MCG/100 ML PM (DEXMEDETOMIDINE/SOD CHLOR) NDC: 65549086073 IV Medication Additives: ADRENALIN (1:1000) INJ(EPINEPHrine) 1 MG/ML INJECTION Dose: 4 MG Carriers: DEXTROSE 250 ML INJECTION Dose: 246 ML INTRAVEN PRN (Rate: 0 MLS/HR Duration: 0 SEC) PRN Reason: CONTINUOUS IV Rx Order Comments: Order filed UNV: Allergies/Duplicates/Interactions differ from work order clerk Label Comments: Conc: 16 mcg/mL Continue parameters and rates from surgery Additives: Epinephrine 1 MG/ML Injectable Solution (RxNorm): 742990 ADRENALIN (1:1000) INJ (EPINEPHrine) NDC: 62622484400 Carriers: Glucose 50 MG/ML Injectable Solution (RxNorm): 022950 (DEXTROSE) NDC: 86721296292 IV Medication Carriers: PRIMACOR 20 MG/100 ML(MILRINONE LACTATE/D5W) 20 MG/100 ML PIGGYBACK Dose: 100 ML INTRAVEN .Q0M (Rate: 0 MLS/HR Duration: 0 SEC) PRN Reason: CONTINUOUS IV Label Comments: CONC: 200 MCG/ML Recommended infusion rates of 0.1-0.75 mcg/kg/min 0.5 mcG/kg/min Carriers: Milrinone 0.2 MG/ML Injectable Solution (RxNorm): 534984 PRIMACOR 20 MG/100 ML (MILRINONE LACTATE/D5W) NDC: 90166360145 WELLBUTRIN SR(BuPROPion) 150 MG TAB Dose: 150 MG ORAL TWICE A DAY Label Comments: MAY INCREASE FALL RISK 12 HR Bupropion Hydrochloride 150 MG Extended Release Oral Tablet [Wellbutrin ] (RxNorm): 888976 WELLBUTRIN SR (BuPROPion) NDC: 81199177450 FLEXERIL(CYCLOBENZAPRINE HCL) 10 MG TAB Dose: 10 MG ORAL 3 TIMES A DAY pain Label Comments: MAY INCREASE FALL RISK Cyclobenzaprine hydrochloride 10 MG Oral Tablet (RxNorm): 031817 FLEXERIL (CYCLOBENZAPRINE HCL) NDC: 21559267146 BENGAY OINT(MENTHOL/METHYL SALICYLATE) 30 GM OINTMENT Dose: 0 GM TOPICALLY NEEDED pain Special Dose Instructions: 1 APPLICATION TO BENGAY OINT (MENTHOL/METHYL SALICYLATE) NDC: 77798557039 CORDARONE(AMIODARONE HCL) 200 MG TAB Dose: 200 MG ORAL TWICE A DAY Label Comments: MAY INCREASE FALL RISK Amiodarone hydrochloride 200 MG Oral Tablet (RxNorm): 202319 CORDARONE (AMIODARONE HCL) NDC: 03410550084 LASIX INJ(FUROSEMIDE) 40 MG/4 ML INJECTION Dose: 4 ML INTRAVEN NEEDED PRN Reason: FLUID OVERLOAD Label Comments: MAY INCREASE FALL RISK Special Dose Instructions: For UOP less than 30ml/h Furosemide 10 MG/ML Injectable Solution (RxNorm): 216857 LASIX INJ (FUROSEMIDE) NDC: 52884483958 MIRALAX(POLYETHYLENE GLYCOL) 17 GM POWDER Dose: 17 GM ORAL DAILY Label Comments: DISSOLVE IN 8 OZ OF WATER POLYETHYLENE GLYCOL 3350 142 MG/ML Oral Solution [Miralax] (RxNorm): 120118 MIRALAX (POLYETHYLENE GLYCOL) NDC: 93255082931 COLACE(DOCUSATE SODIUM) 100 MG CAP Dose: 100 MG ORAL TWICE A DAY Docusate Sodium 100 MG Oral Capsule (RxNorm): 5049876 COLACE (DOCUSATE SODIUM) NDC: 36352286758 K-DUR(POTASSIUM CHLORIDE) 20 MEQ TAB Dose: 20 MEQ ORAL NOW Label Comments: TAKE WITH FOOD TO AVOID GI UPSET Potassium Chloride 20 MEQ Extended Release Oral Tablet [Klor-Con] (RxNorm): 918553 K-DUR (POTASSIUM CHLORIDE) NDC: 01707777319 MIRALAX(POLYETHYLENE GLYCOL) 17 GM POWDER Dose: 17 GM ORAL DAILY Rx Order Comments: Order filed UNV: Allergies/Duplicates/Interactions differ from work order clerk Label Comments: Dissolve in 8 oz of water POLYETHYLENE GLYCOL 3350 142 MG/ML Oral Solution [Miralax] (RxNorm): 631351 MIRALAX (POLYETHYLENE GLYCOL) NDC: 35797732394 NORCO 5-325(HYDROcodone BIT/ACETAMINOPHEN) 1 TAB TAB Dose: 0 TAB ORAL Q4H PRN Reason: MODERATE PAIN Rx Order Comments: Order filed UNV: Allergies/Duplicates/Interactions differ from work order clerk Special Dose Instructions: 1-2 TABS Acetaminophen 325 MG / Hydrocodone Bitartrate 5 MG Oral Tablet (RxNorm): 557535 NORCO 5-325 (HYDROcodone BIT/ACETAMINOPHEN) NDC: 29310920163 LASIX INJ(FUROSEMIDE) 40 MG/4 ML INJECTION Dose: 4 ML INTRAVEN NOW Label Comments: MAY INCREASE FALL RISK Furosemide 10 MG/ML Injectable Solution (RxNorm): 917837 LASIX INJ (FUROSEMIDE) NDC: 55526535835 K-DUR(POTASSIUM CHLORIDE) 20 MEQ TAB Dose: 20 MEQ ORAL NOW Label Comments: TAKE WITH FOOD TO AVOID GI UPSET Potassium Chloride 20 MEQ Extended Release Oral Tablet [Klor-Con] (RxNorm): 737157 K-DUR (POTASSIUM CHLORIDE) NDC: 99544633024 MOTRIN(IBUPROFEN) 800 MG TAB Dose: 800 MG ORAL 3 TIMES A DAY Label Comments: TAKE WITH FOOD OR MILK Ibuprofen 800 MG Oral Tablet (RxNorm): 220435 MOTRIN (IBUPROFEN) NDC: 53020744148 ZESTRIL(LISINOPRIL) 2.5 MG TAB Dose: 2.5 MG ORAL DAILY Label Comments: MAY INCREASE FALL RISK Lisinopril 2.5 MG Oral Tablet (RxNorm): 137031 ZESTRIL (LISINOPRIL) NDC: 31835400702 LASIX INJ(FUROSEMIDE) 40 MG/4 ML INJECTION Dose: 4 ML INTRAVEN BID@ Label Comments: MAY INCREASE FALL RISK Furosemide 10 MG/ML Injectable Solution (RxNorm): 328367 LASIX INJ (FUROSEMIDE) NDC: 02546986707 LOPRESSOR(METOPROLOL TARTRATE) 25 MG TAB Dose: 12.5 MG ORAL TWICE A DAY Label Comments: MAY INCREASE FALL RISK Metoprolol Tartrate 25 MG Oral Tablet (RxNorm): 596546 LOPRESSOR (METOPROLOL TARTRATE) NDC: 04511508346 BENADRYL(DiphenhydrAMINE HCL) 25 MG CAP Dose: 25 MG ORAL Q6H PRN Reason: ANXIETY/SLEEP Label Comments: MAY INCREASE FALL RISK Diphenhydramine Hydrochloride 25 MG Oral Capsule (RxNorm): 1357199 BENADRYL (DiphenhydrAMINE HCL) NDC: 33080387698 Discharge Medications - Medications that patient should continue to take. Review with physician Visit/Account #[id number] (October 12, 2014 4:58am - October 18, 2014 11:25am) Medication Route Sig/Schedule Precondition/Indication Comments/Instructions Codes LIPITOR(ATORVASTATIN) 10 MG TAB Dose: 10 MG ORAL DAILY AT [facility] atorvastatin 10 MG Oral Tablet [Lipitor] (RxNorm): 869338 LIPITOR (ATORVASTATIN) NDC: 76410843014 ALDACTONE(SPIRONOLACTONE) 25 MG TABLET Dose: 12.5 MG ORAL DAILY AT [facility] Spironolactone 25 MG Oral Tablet [Aldactone] (RxNorm): 087803 ALDACTONE (SPIRONOLACTONE) NDC: 07509851866 WELLBUTRIN SR(BuPROPion HCL) 150 MG TAB Dose: 150 MG ORAL TWICE A DAY 12 HR Bupropion Hydrochloride 150 MG Extended Release Oral Tablet [Wellbutrin ] (RxNorm): 643451 WELLBUTRIN SR (BuPROPion HCL) NDC: 13480740015 LASIX(FUROSEMIDE) 20 MG TABLET Dose: 40 MG ORAL DAILY AT [facility] Furosemide 20 MG Oral Tablet [Lasix] (RxNorm): 784549 LASIX (FUROSEMIDE) NDC: 32745743986 CORDARONE(AMIODARONE HCL) 200 MG TAB Dose: 200 MG ORAL TWICE A DAY Amiodarone hydrochloride 200 MG Oral Tablet (RxNorm): 904282 CORDARONE (AMIODARONE HCL) NDC: 75877052008 Aspirin Chew(ASPIRIN) 81 MG TAB Dose: 81 MG ORAL DAILY Aspirin Chew (ASPIRIN) NDC: 08960616045 HYDROcodone BIT/ACETAMINOPHEN 5-325 MG(HYDROcodone BIT/ACETAMINOPHEN) 1 EACH TABLET Dose: 0 TAB ORAL Q4H MODERATE PAIN Acetaminophen 325 MG / Hydrocodone Bitartrate 5 MG Oral Tablet (RxNorm): 153065 HYDROcodone BIT/ACETAMINOPHEN 5-325 MG (HYDROcodone BIT/ACETAMINOPHEN) NDC: 74833749679 ZESTRIL(LISINOPRIL) 2.5 MG TABLET Dose: 2.5 MG ORAL DAILY Lisinopril 2.5 MG Oral Tablet [Zestril] (RxNorm): 708784 ZESTRIL (LISINOPRIL) NDC: 41776633340 COREG(CARVEDILOL) 3.125 MG TABLET Dose: 3.125 MG ORAL WITH BREAKFAST & SUPPER carvedilol 3.125 MG Oral Tablet [Coreg] (RxNorm): 637962 COREG (CARVEDILOL) NDC: 14554835655 History Of Encounters Encounters Visit/Account #[id number] (October 12, 2014 4:58am - October 18, 2014 11:25am) Account Status Physican Of Record Reason For Visit Visit Diagnosis Start Date/Time Stop Date/Time IN AVTAR ROBB MD MITRAL VALVE DISORDER 424.0 424.0: MITRAL VALVE DISORDER ICD9 Oct 12, 2014 4:58am Oct 18, 2014 11:25am History of Procedures Procedure List Visit/Account #[id number] (October 12, 2014 4:58am - October 18, 2014 11:25am) Code/Procedure Date 38.93: VENOUS CATHETERIZATION NEC October 12, 2014 38.91: ARTERIAL CATHETERIZATION October 12, 2014 35.12: OPN MITRAL VALVULOPLASTY October 12, 2014 39.61: EXTRACORP CIRCULAT AUXIL TO OPEN HEART SURG October 12, 2014 37.36: EXC, DESTRUCTION OR EXCLUSION OF LEFT ATRIAL APPENDAGE (ZAK) October 12, 2014 Discharge Instructions Discharge Instructions Visit/Account #[id number] (October 12, 2014 4:58am - October 18, 2014 11:25am) DISCHARGE INSTRUCTIONS Physician Documentation PROVIDER INSTRUCTIONS Discharge Diet Regular Discharge Activity/Weight Bearing Status No lifiting, pushing, or pulling >15 lbs x [address] in approximately 2 weeks when off of narcotic medications Discharge Diet Regular Discharge Activity/Weight Bearing Status No lifiting, pushing, or pulling >15 lbs x [address] in approximately 2 weeks when off of narcotic medications WOUND/INCISION/CATHETER CARE Incision/Wound Care Clean incisions daily with soap and warm water FOLLOW UP APPOINTMENTS Follow Up With Dr. Parekh in 1 week ([phone]) Dr. Mendes in [address] Robb in 4 weeks ([phone]) Call Sunday to set these up Social History Social History No Social History Data. Immunizations Immunizations Patient Unit Number: [id number] Immunizations No immunizations recorded.
--- OUTSIDE RECORDS SUMMARY | 2016-07-25 19:38 | XMS REPORT | Continuity Of Care Document ---
Author Author [facility] Organization [facility] Address [address] [place] [address] Phone Care Team Providers Care Activities Counselor Name Role Phone RISHI YIN, Marcia AT FERNANDA YIN, W CP [phone] JARRET YIN, K AD ROWENA YIN, J PP Results Lab Results Visit/Account #[id number] (November 26, 2014 1:12am - November 27, 2014 7: 38pm) Test Result Date/Time 32626-5: COMPLETE BLOOD COUNT WITH DIFF WHITE BLOOD COUNT(4.0-11.0 10E3/UL) 13.5 10E3/UL November 26, 2014 5:52am 11.2 10E3/UL November 27, 2014 5:45am RED BLOOD COUNT(4.00-5.20 10E6/UL) 4.07 10E6/UL November 26, 2014 5:52am 4.07 10E6/UL November 27, 2014 5:45am HEMOGLOBIN(12.0-16.0 G/DL) 11.6 G/DL November 26, 2014 5:52am 11.8 G/DL November 27, 2014 5:45am HEMATOCRIT(36.0-46.0 %) 37.0 % November 26, 2014 5:52am 37.2 % November 27, 2014 5:45am MEAN CORPUSCULAR VOLUME(82.0-100.0 FL) 90.9 FL November 26, 2014 5:52am 91.4 FL November 27, 2014 5:45am 43776-1: MEAN CORPUSCULAR HEMOGLOBIN(26.0-34.0 PG) 28.5 PG November 26, 2014 5:52am 29.0 PG November 27, 2014 5:45am MEAN CORPUSCULAR HGB CONC(31.5-36.5 G/DL) 31.4 G/DL November 26, 2014 5:52am 31.7 G/DL November 27, 2014 5:45am RED CELL DISTRIBUTION WIDTH(11.5-14.5 %) 17.9 % November 26, 2014 5:52am 18.0 % November 27, 2014 5:45am 777-3: PLATELET COUNT(150-450 10E3/UL) 289 10E3/UL November 26, 2014 5:52am 255 10E3/UL November 27, 2014 5:45am MEAN PLATELET VOLUME(8.2-12.4 FL) 10.3 FL November 26, 2014 5:52am 10.1 FL November 27, 2014 5:45am 770-8: NEUTROPHILS % (AUTO)(40-70 %) 73 % November 26, 2014 5:52am 70 % November 27, 2014 5:45am LYMPHOCYTES % (AUTO)(15-45 %) 18 % November 26, 2014 5:52am 20 % November 27, 2014 5:45am 5905-5: MONOCYTES % (AUTO)(2-10 %) 4 % November 26, 2014 5:52am 5 % November 27, 2014 5:45am 713-8: EOSINOPHILS % (AUTO)(0-6 %) 4 % November 26, 2014 5:52am 4 % November 27, 2014 5:45am 706-2: BASOPHILS % (AUTO)(0-1 %) 1 % November 26, 2014 5:52am 1 % November 27, 2014 5:45am 05040-1: IMMATURE GRANS % (AUTO)(0-0 %) 0 % November 26, 2014 5:52am 0 % November 27, 2014 5:45am NUCLEATED RBCS (AUTO)(0-0 %) 0 % November 26, 2014 5:52am 0 % November 27, 2014 5:45am 751-8: NEUTROPHILS # (AUTO)(2.5-7.5 10E3/UL) 9.9 10E3/UL November 26, 2014 5:52am 7.8 10E3/UL November 27, 2014 5:45am 34352-8: LYMPHOCYTES # (AUTO)(1.0-4.0 10E3/UL) 2.5 10E3/UL November 26, 2014 5:52am 2.2 10E3/UL November 27, 2014 5:45am 742-7: MONOCYTES # (AUTO)(0.2-0.8 10E3/UL) 0.5 10E3/UL November 26, 2014 5:52am 0.6 10E3/UL November 27, 2014 5:45am 711-2: EOSINOPHILS # (AUTO)(0.0-0.4 10E3/UL) 0.5 10E3/UL November 26, 2014 5:52am 0.5 10E3/UL November 27, 2014 5:45am 704-7: BASOPHILS # (AUTO)(0.0-0.2 10E3/UL) 0.1 10E3/UL November 26, 2014 5:52am 0.1 10E3/UL November 27, 2014 5:45am IMMATURE GRANS # (AUTO)(0.0-0.0 10E3/UL) 0.1 10E3/UL November 26, 2014 5:52am 0.1 10E3/UL November 27, 2014 5:45am DIFF TYPE AUTOMATED November 26, 2014 5:52am AUTOMATED November 27, 2014 5:45am UA WITH SCREEN FOR CULTURE 5778-6: COLOR,URINE YELLOW November 26, 2014 12:20pm 19750-6: CLARITY,URINE CLEAR November 26, 2014 12:20pm GLUCOSE, URINE(NEGATIVE MG/DL) NEGATIVE MG/DL November 26, 2014 12:20pm URINE BILIRUBIN(NEGATIVE) NEGATIVE November 26, 2014 12:20pm 38078-1: KETONES,URINE(NEGATIVE MG/DL) NEGATIVE MG/DL November 26, 2014 12:20pm 2965-2: URINE SPECIFIC GRAVITY(1.001-1.035) Less than or equal to 1.005 November 26, 2014 12:20pm 93507-2: URINE BLOOD(NEGATIVE) NEGATIVE November 26, 2014 12:20pm 2756-5: URINE PH(5.0-9.0) 6.0 November 26, 2014 12:20pm URINE PROTEIN(Less than 20 MG/DL) NEGATIVE MG/DL November 26, 2014 12:20pm URINE UROBILINOGEN(0.2-1.0 MG/DL) 0.2 MG/DL November 26, 2014 12:20pm URINE NITRITE(NEGATIVE) NEGATIVE November 26, 2014 12:20pm 5799-2: LEUKOCYTE ESTERASE ,URINE(NEGATIVE) NEGATIVE November 26, 2014 12:20pm 630-4: URINE CULTURE NOT INDICATED November 26, 2014 12:20pm URINE MICROSCOPIC REQUIRED NO November 26, 2014 12:20pm BASIC METABOLIC PANEL GLUCOSE(70-110 MG/DL) 104 MG/DL November 26, 2014 5:52am 98 MG/DL November 27, 2014 5:45am BLOOD UREA NITROGEN(6-20 MG/DL) 14 MG/DL November 26, 2014 5:52am 16 MG/DL November 27, 2014 5:45am CREATININE(0.50-1.20 MG/DL) 0.72 MG/DL November 26, 2014 5:52am 0.94 MG/DL November 27, 2014 5:45am 25271-7: EST GLOMERULAR FILTRATION RATE(Greater than or equal to 60) Greater than or equal to 60 Result Comments: If the patient is of -Romanian descent/extraction multiply the eGFR value by 1.212 to obtain the actual eGFR. >=60 mg/dL Normal 30-59 mg/dL Moderate Kidney Disease 15-29 mg/dL Severe Kidney Disease <15 mg/dL Kidney Failure November 26, 2014 5:52am Greater than or equal to 60 Result Comments: If the patient is of -Romanian descent/extraction multiply the eGFR value by 1.212 to obtain the actual eGFR. >=60 mg/dL Normal 30-59 mg/dL Moderate Kidney Disease 15-29 mg/dL Severe Kidney Disease <15 mg/dL Kidney Failure November 27, 2014 5:45am BUN CREATININE RATIO(10.0-20.0 RATIO) 19.0 RATIO November 26, 2014 5:52am 17.0 RATIO November 27, 2014 5:45am SODIUM(135-145 MMOL/L) 135 MMOL/L November 26, 2014 5:52am 136 MMOL/L November 27, 2014 5:45am POTASSIUM(3.6-5.0 MMOL/L) 3.8 MMOL/L November 26, 2014 5:52am 4.4 MMOL/L November 27, 2014 5:45am CHLORIDE(101-111 MMOL/L) 102 MMOL/L November 26, 2014 5:52am 102 MMOL/L November 27, 2014 5:45am 2028-9: CO2(21-31 MMOL/L) 27.0 MMOL/L November 26, 2014 5:52am 28.0 MMOL/L November 27, 2014 5:45am 11200-5: ANION GAP(8-18) 10 November 26, 2014 5:52am 10 November 27, 2014 5:45am OSMO CALCULATED(270.0-290.0) 270.9 November 26, 2014 5:52am 273.1 November 27, 2014 5:45am CALCIUM(8.5-10.5 MG/DL) 8.9 MG/DL November 26, 2014 5:52am 8.9 MG/DL November 27, 2014 5:45am THYROID STIMULATING HORMONE THYROID STIMULATING HORMONE(0.340-5.600 uIU/ML) 3.910 uIU/ML November 26, 2014 5:52am SERUM HCG, QUALITATIVE 2110-5: SERUM HCG, QUALITATIVE(NEGATIVE) NEGATIVE November 26, 2014 5:52am DRUGS OF ABUSE, URINE 30591-0: OPIATE SCREEN,URINE(NEGATIVE) NEGATIVE November 26, 2014 12:20pm 67787-7: BARBITURATES SCREEN, URINE(NEGATIVE) NEGATIVE November 26, 2014 12:20pm 89633-5: AMPHETAMINE SCREEN,URINE(NEGATIVE) NEGATIVE November 26, 2014 12:20pm BENZODIAZEPINES SCREEN,URINE(NEGATIVE) NEGATIVE November 26, 2014 12:20pm COCAINE SCREEN, URINE(NEGATIVE) NEGATIVE November 26, 2014 12:20pm CANNABINOID SCREEN,URINE(NEGATIVE) NEGATIVE November 26, 2014 12:20pm Microbiology Results Visit/Account #[id number] (November 26, 2014 1:12am - November 27, 2014 7: 38pm) Procedure Result 05904-9: MRSA SCREEN FOR INFEC CONTROL 93067-6: MRSA SCREEN FOR INFEC CONTROL Result Instance On November 26, 2014 2:45am Source: NARE Special Result Comments: No growth Allergies and Adverse Reactions Allergies and Adverse Reactions Patient Unit Number: [id number] Agent Type Reaction Severity Status IODINATED CONTRAST MEDIA - IV DYE Drug Allergy rash, hives, itching Moderate Active LATEX Drug Allergy rash Moderate Active Problem List Problem List Visit/Account #[id number] (November 26, 2014 1:12am - November 27, 2014 7: 38pm) Acute Problems: Code/Condition Comments Documented Start Date Documented Resolved Date Code (s) Left arm numbness ICD10: R20.8 Left upper extremity numbness ICD9: 782.0 Left upper extremity numbness SNOMED: 146591169 Left upper extremity numbness Chronic Problems: Depression ICD10: F32.9 Depression ICD9: 311 Depression SNOMED: 25745212 Depression Dyslipidemia ICD10: E78.4 Dyslipidemia ICD9: 272.4 Dyslipidemia SNOMED: 903578278 Dyslipidemia Patient Unit Number: [id number] Chronic Problems: Code/Condition Comments Documented Start Date Documented Resolved Date Code (s) Mitral valve regurgitation ICD10: I34.0 Mitral valve insufficiency ICD9: 424.0 Mitral valve insufficiency SNOMED: 78217676 Mitral valve insufficiency CHF (congestive heart failure) ICD10: I50.9 Congestive heart failure ICD9: 428.0 Congestive heart failure SNOMED: 57198660 Congestive heart failure Plan of Care Plan Of Care Visit/Account #[id number] (November 26, 2014 1:12am - November 27, 2014 7: 38pm) Patient Instructions Instructions Heart Failure DI for Depression -- Adult DI for Heart Failure DI for Numbness/tingling Vital Signs Vital Signs Visit/Account #[id number] (November 26, 2014 1:12am - November 27, 2014 7: 38pm) Sign First Result Last Result Code(s) Blood Pressure 106/ 70 mm[Hg] On November 26, 2014 3:00am 92/ 59 mm[Hg] On November 27, 2014 6:36pm 8480-6 BP Systolic Heart Rate/Pulse Pulse Rate (adult): 74 /min On November 26, 2014 3:00am Pulse Rate (adult): 85 /min On November 27, 2014 6:36pm 8867-4 Heart Rate 8893-0 Pulse rate Respiratory Rate Respiratory Rate: 16 /min On November 26, 2014 3:00am Respiratory Rate: 18 /min On November 27, 2014 6:36pm 9279-1 Respiratory rate Temperature in Fahrenheit Temperature (Fahrenheit): 97.3 [degF] On November 26, 2014 3:00am Temperature (Fahrenheit): 97.1 [degF] On November 27, 2014 6:36pm 8310-5 Body Temperature Functional Status Functional and Cognitive Status No Functional Status Data Medications Home Medications - Medications that the patient was taking prior to arrival at the hospital Visit/Account #[id number] (November 26, 2014 1:12am - November 27, 2014 7: 38pm) Medication Route Sig/Schedule Precondition/Indication Comments/Instructions Codes LIPITOR(ATORVASTATIN) 10 MG TAB Dose: 10 MG ORAL DAILY AT [facility] atorvastatin 10 MG Oral Tablet [Lipitor] (RxNorm): 110641 LIPITOR (ATORVASTATIN) NDC: 51208050124 WELLBUTRIN SR(BuPROPion HCL) 150 MG TAB Dose: 150 MG ORAL TWICE A DAY 12 HR Bupropion Hydrochloride 150 MG Extended Release Oral Tablet [Wellbutrin ] (RxNorm): 073347 WELLBUTRIN SR (BuPROPion HCL) NDC: 32801917704 CORDARONE(AMIODARONE HCL) 200 MG TAB Dose: 200 MG ORAL TWICE A DAY Amiodarone hydrochloride 200 MG Oral Tablet (RxNorm): 399881 CORDARONE (AMIODARONE HCL) NDC: 43751135111 Aspirin Chew(ASPIRIN) 81 MG TAB Dose: 81 MG ORAL DAILY Aspirin Chew (ASPIRIN) NDC: 33100317515 COREG(CARVEDILOL) 3.125 MG TABLET Dose: 3.125 MG ORAL WITH BREAKFAST & SUPPER carvedilol 3.125 MG Oral Tablet [Coreg] (RxNorm): 188874 COREG (CARVEDILOL) NDC: 93108023227 LASIX(FUROSEMIDE) 20 MG TABLET Dose: 20 MG ORAL DAILY Furosemide 20 MG Oral Tablet [Lasix] (RxNorm): 291625 LASIX (FUROSEMIDE) NDC: 96668439824 PRINIVIL(LISINOPRIL) 5 MG TABLET Dose: 5 MG ORAL DAILY Lisinopril 5 MG Oral Tablet [Prinivil] (RxNorm): 787138 PRINIVIL (LISINOPRIL) NDC: 90212331006 PRINIVIL(LISINOPRIL) 10 MG TABLET Dose: 10 MG ORAL DAILY Lisinopril 10 MG Oral Tablet [Prinivil] (RxNorm): 623896 PRINIVIL (LISINOPRIL) NDC: 09140315596 PROZAC(FLUoxetine HCL) 20 MG CAPSULE Dose: 40 MG ORAL DAILY Fluoxetine 20 MG Oral Capsule [Prozac] (RxNorm): 078642 PROZAC (FLUoxetine HCL) NDC: 77681034216 COREG(CARVEDILOL) 3.125 MG TABLET Dose: 3.125 MG ORAL WITH BREAKFAST & SUPPER carvedilol 3.125 MG Oral Tablet [Coreg] (RxNorm): 162104 COREG (CARVEDILOL) NDC: 55788675939 ECOTRIN(ASPIRIN) 81 MG TABLET.DR Dose: 81 MG ORAL DAILY ECOTRIN (ASPIRIN) NDC: 35290300305 Inpatient/Ordered Medications - Medications administered during hospital visit Visit/Account #[id number] (November 26, 2014 1:12am - November 27, 2014 7: 38pm) Medication Route Sig/Schedule Precondition/Indication Comments/Instructions Codes LASIX INJ(FUROSEMIDE) 20 MG/2 ML INJECTION Dose: 2 ML INTRAVEN NOW Label Comments: MAY INCREASE FALL RISK Furosemide 10 MG/ML Injectable Solution (RxNorm): 948419 LASIX INJ (FUROSEMIDE) NDC: 09044052678 ALDACTONE(SPIRONOLACTONE) 25 MG TAB Dose: 25 MG ORAL DAILY Label Comments: MAY INCREASE FALL RISK Spironolactone 25 MG Oral Tablet (RxNorm): 880814 ALDACTONE (SPIRONOLACTONE) NDC: 26585366582 POTASSIUM CHLORIDE 10 MEQ TAB Dose: 30 MEQ ORAL NOW Label Comments: TAKE WITH FOOD TO AVOID GI USPET Potassium Chloride 10 MEQ Extended Release Oral Tablet [Klor-Con] (RxNorm): 786367 (POTASSIUM CHLORIDE) NDC: 16858496429 ASPIRIN 81 MG TAB Dose: 81 MG ORAL DAILY Aspirin 81 MG Chewable Tablet (RxNorm): 680848 (ASPIRIN) NDC: 94276077322 LIPITOR(ATORVASTATIN) 10 MG TAB Dose: 10 MG ORAL AT BEDTIME Label Comments: TERATOGENIC. WOMEN SHOULD NOT HANDLE OR CRUSH. atorvastatin 10 MG Oral Tablet [Lipitor] (RxNorm): 470210 LIPITOR (ATORVASTATIN) NDC: 27728967705 WELLBUTRIN SR(BuPROPion) 150 MG TAB Dose: 150 MG ORAL TWICE A DAY Label Comments: MAY INCREASE FALL RISK 12 HR Bupropion Hydrochloride 150 MG Extended Release Oral Tablet [Wellbutrin ] (RxNorm): 767453 WELLBUTRIN SR (BuPROPion) NDC: 47687022444 COREG(CARVEDILOL) 3.125 MG TAB Dose: 3.125 MG ORAL WITH BREAKFAST & SUPPER Label Comments: MAY INCREASE FALL RISK TAKE WITH FOOD carvedilol 3.125 MG Oral Tablet [Coreg] (RxNorm): 225535 COREG (CARVEDILOL) NDC: 29041945412 PROzac(FLUoxetine HCL) 20 MG CAP Dose: 40 MG ORAL DAILY Label Comments: MAY INCREASE FALL RISK Fluoxetine 20 MG Oral Capsule (RxNorm): 366528 PROzac (FLUoxetine HCL) NDC: 51056144552 LASIX(FUROSEMIDE) 20 MG TAB Dose: 20 MG ORAL DAILY Label Comments: MAY INCREASE FALL RISK Furosemide 20 MG Oral Tablet (RxNorm): 415521 LASIX (FUROSEMIDE) NDC: 50346177627 ZESTRIL(LISINOPRIL) 10 MG TAB Dose: 10 MG ORAL DAILY Label Comments: MAY INCREASE FALL RISK Lisinopril 10 MG Oral Tablet (RxNorm): 872028 ZESTRIL (LISINOPRIL) NDC: 03888612538 LOVENOX(ENOXAPARIN) 40 MG/0.4 ML INJECTION Dose: 0.4 ML SUBCUTANEOUSLY DAILY@07 Label Comments: INJECT SC INTO ABDOMINAL WALL ONLY. 0.4 ML Enoxaparin sodium 100 MG/ML Prefilled Syringe [Lovenox] (RxNorm): 523850 LOVENOX (ENOXAPARIN) NDC: 95246950822 Discharge Medications - Medications that patient should continue to take. Review with physician Visit/Account #[id number] (November 26, 2014 1:12am - November 27, 2014 7: 38pm) Medication Route Sig/Schedule Precondition/Indication Comments/Instructions Codes LIPITOR(ATORVASTATIN) 10 MG TAB Dose: 10 MG ORAL DAILY AT [facility] atorvastatin 10 MG Oral Tablet [Lipitor] (RxNorm): 140478 LIPITOR (ATORVASTATIN) NDC: 12750994737 WELLBUTRIN SR(BuPROPion HCL) 150 MG TAB Dose: 150 MG ORAL TWICE A DAY 12 HR Bupropion Hydrochloride 150 MG Extended Release Oral Tablet [Wellbutrin ] (RxNorm): 515903 WELLBUTRIN SR (BuPROPion HCL) NDC: 00877948656 COREG(CARVEDILOL) 3.125 MG TABLET Dose: 3.125 MG ORAL WITH BREAKFAST & SUPPER carvedilol 3.125 MG Oral Tablet [Coreg] (RxNorm): 221780 COREG (CARVEDILOL) NDC: 08900773346 LASIX(FUROSEMIDE) 20 MG TABLET Dose: 20 MG ORAL DAILY Furosemide 20 MG Oral Tablet [Lasix] (RxNorm): 346781 LASIX (FUROSEMIDE) NDC: 33569964534 PRINIVIL(LISINOPRIL) 10 MG TABLET Dose: 10 MG ORAL DAILY Lisinopril 10 MG Oral Tablet [Prinivil] (RxNorm): 186505 PRINIVIL (LISINOPRIL) NDC: 45460051279 PROZAC(FLUoxetine HCL) 20 MG CAPSULE Dose: 40 MG ORAL DAILY Fluoxetine 20 MG Oral Capsule [Prozac] (RxNorm): 760602 PROZAC (FLUoxetine HCL) NDC: 21476052198 ECOTRIN(ASPIRIN) 81 MG TABLET.DR Dose: 81 MG ORAL DAILY ECOTRIN (ASPIRIN) NDC: 20422890281 History Of Encounters Encounters Visit/Account #[id number] (November 26, 2014 1:12am - November 27, 2014 7: 38pm) Account Status Physican Of Record Reason For Visit Visit Diagnosis Start Date/Time Stop Date/Time Chevy ADX BLACKWELL MD CHF 782.0: SKIN SENSATION DISTURB ICD9 Nov 26, 2014 1:12am Nov 27, 2014 7:38pm History of Procedures Procedure List No procedures recorded. Discharge Instructions Discharge Instructions Visit/Account #[id number] (November 26, 2014 1:12am - November 27, 2014 7: 38pm) DISCHARGE INSTRUCTIONS Physician Documentation PROVIDER INSTRUCTIONS Discharge Diet As Tolerated Discharge Activity/Weight Bearing Status As tolerated Discharge Diet As Tolerated Discharge Activity/Weight Bearing Status As tolerated REASON TO CALL PROVIDER Notify Physician if: Call your PCP with any further questions or concerns FOLLOW UP APPOINTMENTS Follow Up With 1. Dr Ramirez ([phone]) will see you in his office. Call his office on Sunday morning to set up an appointment time and date. 2. Primary care physician within 2-3 weeks for hospital follow up - please call Sunday to set up follow up appointment Social History Social History No Social History Data. Immunizations Immunizations Patient Unit Number: [id number] Immunizations No immunizations recorded.
--- OUTSIDE RECORDS SUMMARY | 2016-07-25 19:38 | XMS REPORT | Continuity of Care Document ---
Author Author [facility] Organization [facility] Address Unknown Phone Unavailable Support Name Relationship Address Phone GOYO ROSENDO Next Of Kin [address] [phone] Insurance Providers Payer Name Policy Number Subscriber Name Relationship [employer] [id number] Rosendo Nance A 01 Advance Directives Directive Response Recorded Date Advanced Directives No 03/22/13 8:32am Problems Medical Problem Onset Date Cough 03/22/13 Allergies, Adverse Reactions, Alerts Allergen Type Severity Reaction Last Updated No Known Drug Allergies 03/22/13 Medications Medication Dose Units Route Sig Qty Days No Active Prescriptions or Reported Medications Response Recorded Date/Time Status not known Unknown Results No Known Relevant Diagnostic Tests, Laboratory Data and/or Discharge Summary. Encounters Encounter Location Date/Time Departed Emergency Room [facility] 03/22/13 8:28am
--- OUTSIDE RECORDS SUMMARY | 2016-07-25 19:39 | XMS REPORT | Continuity Of Care Document ---
Author Author [facility] Organization [facility] Address [address] [place] [address] Phone Care Team Providers Care Network Mgr Name Role Phone LORI YIN, Enedina Unavailable CEZAR YIN, S AT ROWENA YIN, J PP Results Lab Results Visit/Account #[id number] (March 22, 2015 5:05am - March 26, 2015 3:41pm) Test Result Date/Time CG8 ARTERIAL 80981-2: STYPE ART March 22, 2015 8:07am ART March 22, 2015 10:08am ART March 22, 2015 10:16am ART March 22, 2015 10:49am ART March 22, 2015 11:19am ART March 22, 2015 11:50am ART March 22, 2015 12:23pm ART March 22, 2015 12:47pm ART March 22, 2015 1:01pm ART March 22, 2015 1:54pm ART March 22, 2015 2:26pm ART March 22, 2015 3:07pm HEMOGLOBIN(12.0-16.0 G/DL) 12.2 G/DL March 22, 2015 8:07am 11.9 G/DL March 22, 2015 10:08am 10.2 G/DL Result Comments: CPB Applied March 22, 2015 10:16am 8.8 G/DL Result Comments: CPB Applied March 22, 2015 10:49am 9.5 G/DL Result Comments: CPB Applied March 22, 2015 11:19am 9.2 G/DL Result Comments: CPB Applied March 22, 2015 11:50am 9.5 G/DL Result Comments: CPB Applied March 22, 2015 12:23pm 9.2 G/DL Result Comments: CPB Applied March 22, 2015 12:47pm 9.2 G/DL Result Comments: CPB Applied March 22, 2015 1:01pm 9.2 G/DL Result Comments: CPB Applied March 22, 2015 1:54pm 10.2 G/DL Result Comments: CPB Applied March 22, 2015 2:26pm 10.2 G/DL Result Comments: CPB Applied March 22, 2015 3:07pm HEMATOCRIT(36.0-48.0 %) 36.0 % March 22, 2015 8:07am 35.0 % March 22, 2015 10:08am 30.0 % Result Comments: CPB Applied March 22, 2015 10:16am 26.0 % Result Comments: CPB Applied March 22, 2015 10:49am 28.0 % Result Comments: CPB Applied March 22, 2015 11:19am 27.0 % Result Comments: CPB Applied March 22, 2015 11:50am 28.0 % Result Comments: CPB Applied March 22, 2015 12:23pm 27.0 % Result Comments: CPB Applied March 22, 2015 12:47pm 27.0 % Result Comments: CPB Applied March 22, 2015 1:01pm 27.0 % Result Comments: CPB Applied March 22, 2015 1:54pm 30.0 % Result Comments: CPB Applied March 22, 2015 2:26pm 30.0 % Result Comments: CPB Applied March 22, 2015 3:07pm GLUCOSE(70-110 MG/DL) 138 MG/DL March 22, 2015 8:07am 150 MG/DL March 22, 2015 10:08am 146 MG/DL March 22, 2015 10:16am 172 MG/DL March 22, 2015 10:49am 212 MG/DL March 22, 2015 11:19am 235 MG/DL March 22, 2015 11:50am 197 MG/DL March 22, 2015 12:23pm 152 MG/DL March 22, 2015 12:47pm 178 MG/DL March 22, 2015 1:01pm 179 MG/DL March 22, 2015 1:54pm 150 MG/DL March 22, 2015 2:26pm 130 MG/DL March 22, 2015 3:07pm SODIUM(135-145 MMOL/L) 136 MMOL/L March 22, 2015 8:07am 135 MMOL/L March 22, 2015 10:08am 131 MMOL/L March 22, 2015 10:16am 133 MMOL/L March 22, 2015 10:49am 133 MMOL/L March 22, 2015 11:19am 132 MMOL/L March 22, 2015 11:50am 132 MMOL/L March 22, 2015 12:23pm 135 MMOL/L March 22, 2015 12:47pm 135 MMOL/L March 22, 2015 1:01pm 137 MMOL/L March 22, 2015 1:54pm 139 MMOL/L March 22, 2015 2:26pm 139 MMOL/L March 22, 2015 3:07pm POTASSIUM(3.6-5.0 MMOL/L) 4.1 MMOL/L March 22, 2015 8:07am 4.3 MMOL/L March 22, 2015 10:08am 4.1 MMOL/L March 22, 2015 10:16am 4.8 MMOL/L March 22, 2015 10:49am 5.0 MMOL/L March 22, 2015 11:19am 5.5 MMOL/L March 22, 2015 11:50am 5.4 MMOL/L March 22, 2015 12:23pm 4.8 MMOL/L March 22, 2015 12:47pm 4.6 MMOL/L March 22, 2015 1:01pm 4.1 MMOL/L March 22, 2015 1:54pm 4.0 MMOL/L March 22, 2015 2:26pm 4.2 MMOL/L March 22, 2015 3:07pm IONIZED CALCIUM(1.12-1.32 mmol/L) 1.13 mmol/L March 22, 2015 8:07am 1.05 mmol/L March 22, 2015 10:08am 0.94 mmol/L March 22, 2015 10:16am 0.96 mmol/L March 22, 2015 10:49am 0.99 mmol/L March 22, 2015 11:19am 0.96 mmol/L March 22, 2015 11:50am 1.10 mmol/L March 22, 2015 12:23pm 1.21 mmol/L March 22, 2015 12:47pm 1.18 mmol/L March 22, 2015 1:01pm 1.10 mmol/L March 22, 2015 1:54pm 1.03 mmol/L March 22, 2015 2:26pm 1.05 mmol/L March 22, 2015 3:07pm 70986-6: PH(7.35-7.45) 7.232 March 22, 2015 8:07am 7.334 March 22, 2015 10:08am 7.337 March 22, 2015 10:16am 7.372 March 22, 2015 10:49am 7.375 March 22, 2015 11:19am 7.359 March 22, 2015 11:50am 7.312 March 22, 2015 12:23pm 7.368 March 22, 2015 12:47pm 7.361 March 22, 2015 1:01pm 7.274 March 22, 2015 1:54pm 7.364 March 22, 2015 2:26pm 7.306 March 22, 2015 3:07pm PCO2(35-45 mmHg) 55.6 mmHg March 22, 2015 8:07am 42.2 mmHg March 22, 2015 10:08am 42.7 mmHg March 22, 2015 10:16am 41.5 mmHg March 22, 2015 10:49am 39.8 mmHg March 22, 2015 11:19am 42.3 mmHg March 22, 2015 11:50am 42.4 mmHg March 22, 2015 12:23pm 43.1 mmHg March 22, 2015 12:47pm 43.8 mmHg March 22, 2015 1:01pm 49.9 mmHg March 22, 2015 1:54pm 43.7 mmHg March 22, 2015 2:26pm 49.7 mmHg March 22, 2015 3:07pm 36859-0: PO2(80-105 mmHg) 105 mmHg March 22, 2015 8:07am 135 mmHg March 22, 2015 10:08am 442 mmHg March 22, 2015 10:16am 415 mmHg March 22, 2015 10:49am 350 mmHg March 22, 2015 11:19am 441 mmHg March 22, 2015 11:50am 306 mmHg March 22, 2015 12:23pm 368 mmHg March 22, 2015 12:47pm 449 mmHg March 22, 2015 1:01pm 146 mmHg March 22, 2015 1:54pm 164 mmHg March 22, 2015 2:26pm 175 mmHg March 22, 2015 3:07pm HCO3(22-26 MMOL/L) 23.4 MMOL/L March 22, 2015 8:07am 22.5 MMOL/L March 22, 2015 10:08am 22.9 MMOL/L March 22, 2015 10:16am 24.1 MMOL/L March 22, 2015 10:49am 23.3 MMOL/L March 22, 2015 11:19am 23.9 MMOL/L March 22, 2015 11:50am 21.5 MMOL/L March 22, 2015 12:23pm 24.8 MMOL/L March 22, 2015 12:47pm 24.8 MMOL/L March 22, 2015 1:01pm 23.1 MMOL/L March 22, 2015 1:54pm 24.9 MMOL/L March 22, 2015 2:26pm 24.8 MMOL/L March 22, 2015 3:07pm TCO2(23-27 MMOL/L) 25 MMOL/L March 22, 2015 8:07am 24 MMOL/L March 22, 2015 10:08am 24 MMOL/L March 22, 2015 10:16am 25 MMOL/L March 22, 2015 10:49am 24 MMOL/L March 22, 2015 11:19am 25 MMOL/L March 22, 2015 11:50am 23 MMOL/L March 22, 2015 12:23pm 26 MMOL/L March 22, 2015 12:47pm 26 MMOL/L March 22, 2015 1:01pm 25 MMOL/L March 22, 2015 1:54pm 26 MMOL/L March 22, 2015 2:26pm 26 MMOL/L March 22, 2015 3:07pm SO2C(95-98 %) 97 % March 22, 2015 8:07am 99 % March 22, 2015 10:08am 100 % March 22, 2015 10:16am 100 % March 22, 2015 10:49am 100 % March 22, 2015 11:19am 100 % March 22, 2015 11:50am 100 % March 22, 2015 12:23pm 100 % March 22, 2015 12:47pm 100 % March 22, 2015 1:01pm 99 % March 22, 2015 1:54pm 99 % March 22, 2015 2:26pm 99 % March 22, 2015 3:07pm 1922-4: ABG BASE DEFICIT(0-30 mmol/L) 4 mmol/L March 22, 2015 8:07am 3 mmol/L March 22, 2015 10:08am 3 mmol/L March 22, 2015 10:16am 1 mmol/L March 22, 2015 10:49am 2 mmol/L March 22, 2015 11:19am 2 mmol/L March 22, 2015 11:50am 5 mmol/L March 22, 2015 12:23pm 1 mmol/L March 22, 2015 12:47pm 1 mmol/L March 22, 2015 1:01pm 4 mmol/L March 22, 2015 1:54pm 2 mmol/L March 22, 2015 3:07pm 1927-3: ABG BASE EXCESS(0-30 mmol/L) 0 mmol/L March 22, 2015 2:26pm FIO2(%) 100 % March 22, 2015 3:07pm PEEP(CM H2O) 5 CM H2O March 22, 2015 3:07pm TIDAL VOLUME(ML) 700 ML March 22, 2015 3:07pm POCGL POCGL(70-110 MG/DL) 167 MG/DL March 22, 2015 4:01pm 154 MG/DL March 22, 2015 5:06pm 162 MG/DL March 22, 2015 5:56pm 159 MG/DL March 22, 2015 7:04pm 162 MG/DL March 22, 2015 8:00pm 171 MG/DL March 22, 2015 9:03pm 151 MG/DL March 22, 2015 10:05pm 134 MG/DL March 22, 2015 11:05pm 138 MG/DL March 23, 2015 12:07am 137 MG/DL March 23, 2015 1:06am 147 MG/DL March 23, 2015 2:04am 142 MG/DL March 23, 2015 3:22am 121 MG/DL March 23, 2015 4:17am 114 MG/DL March 23, 2015 5:12am 107 MG/DL March 23, 2015 6:30am 114 MG/DL March 23, 2015 7:07am 115 MG/DL March 23, 2015 7:58am 123 MG/DL March 23, 2015 11:34am 122 MG/DL March 23, 2015 5:40pm 114 MG/DL March 23, 2015 8:36pm 3184-9: ACTIVATED CLOTTING TIME 3184-9: ACTIVATED CLOTTING TIME(SECONDS) 137 SECONDS Result Comments: REFERENCE RANGES: BASELINE 74-125 SECONDS HEPARIN TREATED CCL 300-400 SECONDS HEPARIN TREATED CVOR >400 SECONDS March 22, 2015 8:06am 742 SECONDS Result Comments: REFERENCE RANGES: BASELINE 74-125 SECONDS HEPARIN TREATED CCL 300-400 SECONDS HEPARIN TREATED CVOR >400 SECONDS March 22, 2015 10:01am 422 SECONDS Result Comments: REFERENCE RANGES: BASELINE 74-125 SECONDS HEPARIN TREATED CCL 300-400 SECONDS HEPARIN TREATED CVOR >400 SECONDS March 22, 2015 10:48am 417 SECONDS Result Comments: REFERENCE RANGES: BASELINE 74-125 SECONDS HEPARIN TREATED CCL 300-400 SECONDS HEPARIN TREATED CVOR >400 SECONDS March 22, 2015 11:18am 404 SECONDS Result Comments: REFERENCE RANGES: BASELINE 74-125 SECONDS HEPARIN TREATED CCL 300-400 SECONDS HEPARIN TREATED CVOR >400 SECONDS March 22, 2015 11:49am 404 SECONDS Result Comments: REFERENCE RANGES: BASELINE 74-125 SECONDS HEPARIN TREATED CCL 300-400 SECONDS HEPARIN TREATED CVOR >400 SECONDS March 22, 2015 12:22pm 435 SECONDS Result Comments: REFERENCE RANGES: BASELINE 74-125 SECONDS HEPARIN TREATED CCL 300-400 SECONDS HEPARIN TREATED CVOR >400 SECONDS March 22, 2015 12:46pm 111 SECONDS Result Comments: REFERENCE RANGES: BASELINE 74-125 SECONDS HEPARIN TREATED CCL 300-400 SECONDS HEPARIN TREATED CVOR >400 SECONDS March 22, 2015 1:53pm COMPLETE BLOOD COUNT WHITE BLOOD COUNT(4.0-11.0 10E3/UL) 16.2 10E3/UL March 23, 2015 4:05am 15.5 10E3/UL March 24, 2015 3:40am RED BLOOD COUNT(4.00-5.20 10E6/UL) 2.86 10E6/UL March 23, 2015 4:05am 2.92 10E6/UL March 24, 2015 3:40am HEMOGLOBIN(12.0-16.0 G/DL) 9.0 G/DL March 23, 2015 4:05am 9.1 G/DL March 24, 2015 3:40am HEMATOCRIT(36.0-46.0 %) 27.3 % March 23, 2015 4:05am 28.3 % March 24, 2015 3:40am MEAN CORPUSCULAR VOLUME(82.0-100.0 FL) 95.5 FL March 23, 2015 4:05am 96.9 FL March 24, 2015 3:40am 90066-5: MEAN CORPUSCULAR HEMOGLOBIN(26.0-34.0 PG) 31.5 PG March 23, 2015 4:05am 31.2 PG March 24, 2015 3:40am MEAN CORPUSCULAR HGB CONC(31.5-36.5 G/DL) 33.0 G/DL March 23, 2015 4:05am 32.2 G/DL March 24, 2015 3:40am RED CELL DISTRIBUTION WIDTH(11.5-14.5 %) 15.6 % March 23, 2015 4:05am 15.4 % March 24, 2015 3:40am 777-3: PLATELET COUNT(150-450 10E3/UL) 126 10E3/UL March 23, 2015 4:05am 131 10E3/UL March 24, 2015 3:40am MEAN PLATELET VOLUME(8.2-12.4 FL) 10.8 FL March 23, 2015 4:05am 10.8 FL March 24, 2015 3:40am NUCLEATED RBCS (AUTO)(0-0 %) 0 % March 23, 2015 4:05am 0 % March 24, 2015 3:40am 777-3: PLATELET COUNT 777-3: PLATELET COUNT(150-450 10E3/UL) 127 10E3/UL March 22, 2015 1:53pm 114 10E3/UL March 22, 2015 3:04pm 86520-1: PROTHROMBIN TIME WITH INR PROTHROMBIN TIME(12.1-14.0 SEC) 18.2 SEC March 22, 2015 1:53pm 15.2 SEC March 23, 2015 4:05am 28.3 SEC March 24, 2015 3:40am 23.5 SEC March 25, 2015 7:21am 22.3 SEC March 26, 2015 7:37am 00757-9: INR 1.57 Result Comments: INR reference interval applies to patients on anticoagulant therapy. Suggested INR therapeutic range for oral anticoagulant therapy: (Stabilized anticoagulated patients) Routine Therapy: 2.0 to 3.0 Recurrent Myocardial Infarction: 2.5 to 3.5 Mechanical Prosthetic Valves: 2.5 to 3.5 March 22, 2015 1:53pm 1.25 Result Comments: INR reference interval applies to patients on anticoagulant therapy. Suggested INR therapeutic range for oral anticoagulant therapy: (Stabilized anticoagulated patients) Routine Therapy: 2.0 to 3.0 Recurrent Myocardial Infarction: 2.5 to 3.5 Mechanical Prosthetic Valves: 2.5 to 3.5 March 23, 2015 4:05am 2.78 Result Comments: INR reference interval applies to patients on anticoagulant therapy. Suggested INR therapeutic range for oral anticoagulant therapy: (Stabilized anticoagulated patients) Routine Therapy: 2.0 to 3.0 Recurrent Myocardial Infarction: 2.5 to 3.5 Mechanical Prosthetic Valves: 2.5 to 3.5 March 24, 2015 3:40am 2.19 Result Comments: INR reference interval applies to patients on anticoagulant therapy. Suggested INR therapeutic range for oral anticoagulant therapy: (Stabilized anticoagulated patients) Routine Therapy: 2.0 to 3.0 Recurrent Myocardial Infarction: 2.5 to 3.5 Mechanical Prosthetic Valves: 2.5 to 3.5 March 25, 2015 7:21am 2.05 Result Comments: INR reference interval applies to patients on anticoagulant therapy. Suggested INR therapeutic range for oral anticoagulant therapy: (Stabilized anticoagulated patients) Routine Therapy: 2.0 to 3.0 Recurrent Myocardial Infarction: 2.5 to 3.5 Mechanical Prosthetic Valves: 2.5 to 3.5 March 26, 2015 7:37am PARTIAL THROMBOPLASTIN TIME PARTIAL THROMBOPLASTIN TIME(22.2-37.4 SEC) 37.7 SEC March 22, 2015 1:53pm FIBRINOGEN FIBRINOGEN(229-463 MG/DL) 182 MG/DL March 22, 2015 1:53pm URINALYSIS, DIPSTICK INF CNTRL 5778-6: COLOR,URINE YELLOW March 22, 2015 7:30am 60905-7: CLARITY,URINE CLEAR March 22, 2015 7:30am GLUCOSE, URINE(NEGATIVE MG/DL) NEGATIVE MG/DL March 22, 2015 7:30am URINE BILIRUBIN(NEGATIVE) NEGATIVE March 22, 2015 7:30am 93312-7: KETONES,URINE(NEGATIVE MG/DL) NEGATIVE MG/DL March 22, 2015 7:30am 2965-2: URINE SPECIFIC GRAVITY(1.001-1.035) 1.025 March 22, 2015 7:30am 50339-7: URINE BLOOD(NEGATIVE) NEGATIVE March 22, 2015 7:30am 2756-5: URINE PH(5.0-9.0) 6.0 March 22, 2015 7:30am URINE PROTEIN(Less than 20 MG/DL) NEGATIVE MG/DL March 22, 2015 7:30am URINE UROBILINOGEN(0.2-1.0 MG/DL) 0.2 MG/DL March 22, 2015 7:30am URINE NITRITE(NEGATIVE) NEGATIVE March 22, 2015 7:30am 5799-2: LEUKOCYTE ESTERASE ,URINE(NEGATIVE) NEGATIVE March 22, 2015 7:30am 630-4: URINE CULTURE NOT INDICATED March 22, 2015 7:30am BASIC METABOLIC PANEL GLUCOSE(70-110 MG/DL) 127 MG/DL March 23, 2015 4:05am 122 MG/DL March 24, 2015 3:40am BLOOD UREA NITROGEN(6-20 MG/DL) 10 MG/DL March 23, 2015 4:05am 11 MG/DL March 24, 2015 3:40am CREATININE(0.50-1.20 MG/DL) 0.61 MG/DL March 23, 2015 4:05am 0.59 MG/DL March 24, 2015 3:40am 07141-2: EST GLOMERULAR FILTRATION RATE(Greater than or equal to 60) Greater than or equal to 60 Result Comments: If the patient is of -[place] descent/extraction multiply the eGFR value by 1.212 to obtain the actual eGFR. >=60 mg/dL Normal 30-59 mg/dL Moderate Kidney Disease 15-29 mg/dL Severe Kidney Disease <15 mg/dL Kidney Failure March 23, 2015 4:05am Greater than or equal to 60 Result Comments: If the patient is of -[place] descent/extraction multiply the eGFR value by 1.212 to obtain the actual eGFR. >=60 mg/dL Normal 30-59 mg/dL Moderate Kidney Disease 15-29 mg/dL Severe Kidney Disease <15 mg/dL Kidney Failure March 24, 2015 3:40am BUN CREATININE RATIO(10.0-20.0 RATIO) 16.0 RATIO March 23, 2015 4:05am 19.0 RATIO March 24, 2015 3:40am SODIUM(135-145 MMOL/L) 135 MMOL/L March 23, 2015 4:05am 134 MMOL/L March 24, 2015 3:40am POTASSIUM(3.6-5.0 MMOL/L) 3.8 MMOL/L March 23, 2015 4:05am 4.1 MMOL/L March 24, 2015 3:40am CHLORIDE(101-111 MMOL/L) 105 MMOL/L March 23, 2015 4:05am 102 MMOL/L March 24, 2015 3:40am 8-9: CO2(21-31 MMOL/L) 26.0 MMOL/L March 23, 2015 4:05am 25.0 MMOL/L March 24, 2015 3:40am 27140-6: ANION GAP(8-18) 8 March 23, 2015 4:05am 11 March 24, 2015 3:40am OSMO CALCULATED(270.0-290.0) 270.7 March 23, 2015 4:05am 268.9 March 24, 2015 3:40am CALCIUM(8.5-10.5 MG/DL) 7.2 MG/DL March 23, 2015 4:05am 7.8 MG/DL March 24, 2015 3:40am BLOOD UREA NITROGEN BLOOD UREA NITROGEN(6-20 MG/DL) 12 MG/DL March 22, 2015 3:04pm CREATININE CREATININE(0.50-1.20 MG/DL) 0.82 MG/DL March 22, 2015 3:04pm 06025-2: EST GLOMERULAR FILTRATION RATE(Greater than or equal to 60) Greater than or equal to 60 Result Comments: If the patient is of -[place] descent/extraction multiply the eGFR value by 1.212 to obtain the actual eGFR. >=60 mg/dL Normal 30-59 mg/dL Moderate Kidney Disease 15-29 mg/dL Severe Kidney Disease <15 mg/dL Kidney Failure March 22, 2015 3:04pm POTASSIUM POTASSIUM(3.6-5.0 MMOL/L) 4.2 MMOL/L March 23, 2015 7:57am 56984-5: MAGNESIUM 70678-4: MAGNESIUM(1.8-2.5 MG/DL) 3.1 MG/DL March 22, 2015 3:04pm 2.5 MG/DL March 23, 2015 4:05am IONIZED CALCIUM IONIZED CALCIUM(1.12-1.32 mmol/L) 1.06 mmol/L March 23, 2015 4:05am SERUM HCG, QUALITATIVE 0-5: SERUM HCG, QUALITATIVE(NEGATIVE) NEGATIVE March 22, 2015 5:42am Microbiology Results Visit/Account #[id number] (March 22, 2015 5:05am - March 26, 2015 3:41pm) Procedure Result 45329-7: MRSA SCREEN FOR INFEC CONTROL 56356-9: MRSA SCREEN FOR INFEC CONTROL Result Instance On March 22, 2015 3:30pm Source: [facility] Result Comments: No growth Bloodbank Results Visit/Account #[id number] (March 22, 2015 5:05am - March 26, 2015 3:41pm) Test Result ABO/RH 82650-1: BLOOD TYPE O POSITIVE on March 22, 2015 5:42am ANTIBODY SCREEN ANTIBODY SCREEN NEGATIVE on March 22, 2015 5:42am Allergies and Adverse Reactions Allergies and Adverse Reactions Patient Unit Number: [id number] Agent Type Reaction Severity Status IODINATED CONTRAST MEDIA - IV DYE Drug Allergy rash, hives, itching Moderate Active LATEX Drug Allergy rash Moderate Active Problem List Problem List Visit/Account #[id number] (March 22, 2015 5:05am - March 26, 2015 3:41pm) Acute Problems: Code/Condition Comments Documented Start Date Documented Resolved Date Code (s) Postoperative anemia due to acute blood loss ICD10: D62 Postoperative anemia due to acute blood loss ICD9: 285.1 Postoperative anemia due to acute blood loss SNOMED: 579143482 Postoperative anemia due to acute blood loss Anticoagulated on Coumadin ICD10: Z51.81 Anticoagulated on Coumadin ICD9: V58.83 Anticoagulated on Coumadin SNOMED: 69725682 Anticoagulated on Coumadin Postoperative anemia due to acute blood loss ICD10: D62 Postoperative anemia due to acute blood loss ICD9: 285.1 Postoperative anemia due to acute blood loss SNOMED: 104219791 Postoperative anemia due to acute blood loss Thrombocytopenia ICD10: D69.6 Thrombocytopenia ICD9: 287.5 Thrombocytopenia SNOMED: 825332357 Thrombocytopenia Thrombocytopenia ICD10: D69.6 Thrombocytopenia ICD9: 287.5 Thrombocytopenia SNOMED: 188598504 Thrombocytopenia Chronic Problems: Systolic CHF ICD10: I50.20 Systolic CHF ICD9: 428.20 Systolic CHF SNOMED: 975419199 Systolic CHF Depression ICD10: F32.9 Depression ICD9: 311 Depression SNOMED: 38460333 Depression CHF (congestive heart failure) ICD10: I50.9 Congestive heart failure ICD9: 428.0 Congestive heart failure SNOMED: 69182827 Congestive heart failure Dyslipidemia ICD10: E78.4 Dyslipidemia ICD9: 272.4 Dyslipidemia SNOMED: 233793465 Dyslipidemia Resolved Problems: Mitral valve regurgitation March 23, 2015 ICD10: I34.0 Mitral valve regurgitation ICD9: 424.0 Mitral valve regurgitation SNOMED: 35282059 Mitral valve regurgitation Patient Unit Number: [id number] Chronic Problems: Code/Condition Comments Documented Start Date Documented Resolved Date Code (s) Mitral valve regurgitation ICD10: I34.0 Mitral valve insufficiency ICD9: 424.0 Mitral valve insufficiency SNOMED: 91202932 Mitral valve insufficiency Decreased cardiac ejection fraction ICD10: R93.1 Decreased cardiac ejection fraction ICD9: 794.39 Decreased cardiac ejection fraction SNOMED: 072488546 Decreased cardiac ejection fraction Plan of Care Plan Of Care Visit/Account #[id number] (March 22, 2015 5:05am - March 26, 2015 3:41pm) Patient Instructions Instructions Heart Failure DI for Heart Failure DI for Mitral Valve Replacement Stool Softeners Polyethylene Glycol 3350 Warfarin Cyclobenzaprine Losartan DI for Warfarin Therapy Hydrocodone Vital Signs Vital Signs Visit/Account #[id number] (March 22, 2015 5:05am - March 26, 2015 3:41pm) Sign First Result Last Result Code(s) Blood Pressure 127/ 64 mm[Hg] On March 22, 2015 3:15pm 104/ 57 mm[Hg] On March 26, 2015 2:37pm 8480-6 BP Systolic Heart Rate/Pulse Pulse Rate (adult): 79 /min On March 22, 2015 3:15pm Pulse Rate (adult): 92 /min On March 26, 2015 2:37pm 8867-4 Heart Rate 8893-0 Pulse rate Respiratory Rate Respiratory Rate: 20 /min On March 22, 2015 3:15pm Respiratory Rate: 20 /min On March 26, 2015 2:37pm 9279-1 Respiratory rate Temperature in Fahrenheit Temperature (Fahrenheit): 99.0 [degF] On March 22, 2015 3:15pm Temperature (Fahrenheit): 99.3 [degF] On March 26, 2015 2:37pm 8310-5 Body Temperature Functional Status Functional and Cognitive Status No Functional Status Data Medications Home Medications - Medications that the patient was taking prior to arrival at the hospital Visit/Account #[id number] (March 22, 2015 5:05am - March 26, 2015 3:41pm) Medication Route Sig/Schedule Precondition/Indication Comments/Instructions Codes LIPITOR(ATORVASTATIN) 10 MG TAB Dose: 10 MG ORAL DAILY AT [facility] atorvastatin 10 MG Oral Tablet [Lipitor] (RxNorm): 906348 LIPITOR (ATORVASTATIN) NDC: 50311404291 WELLBUTRIN SR(BuPROPion HCL) 150 MG TAB Dose: 150 MG ORAL TWICE A DAY 12 HR Bupropion Hydrochloride 150 MG Extended Release Oral Tablet [Wellbutrin ] (RxNorm): 535063 WELLBUTRIN SR (BuPROPion HCL) NDC: 44896794315 COREG(CARVEDILOL) 3.125 MG TABLET Dose: 3.125 MG ORAL WITH BREAKFAST & SUPPER carvedilol 3.125 MG Oral Tablet [Coreg] (RxNorm): 740163 COREG (CARVEDILOL) NDC: 74968954297 ECOTRIN(ASPIRIN) 81 MG TABLET. Dose: 81 MG ORAL DAILY ECOTRIN (ASPIRIN) NDC: 60436756048 PROZAC(FLUoxetine HCL) 20 MG CAPSULE Dose: 20 MG ORAL DAILY Fluoxetine 20 MG Oral Capsule [Prozac] (RxNorm): 021709 PROZAC (FLUoxetine HCL) NDC: 30692072466 LASIX(FUROSEMIDE) 40 MG TABLET Dose: 40 MG ORAL TWICE A DAY Furosemide 40 MG Oral Tablet [Lasix] (RxNorm): 919920 LASIX (FUROSEMIDE) NDC: 65470470204 ALDACTONE(SPIRONOLACTONE) 25 MG TABLET Dose: 25 MG ORAL DAILY Spironolactone 25 MG Oral Tablet [Aldactone] (RxNorm): 494417 ALDACTONE (SPIRONOLACTONE) NDC: 09345037208 COZAAR(LOSARTAN POTASSIUM) 50 MG TABLET Dose: 50 MG ORAL DAILY Losartan Potassium 50 MG Oral Tablet [Cozaar] (RxNorm): 391822 COZAAR (LOSARTAN POTASSIUM) NDC: 44978499476 CARVEDILOL(CARVEDILOL) 3.125 MG TABLET Dose: 3.125 MG ORAL WITH BREAKFAST & SUPPER carvedilol 3.125 MG Oral Tablet (RxNorm): 649886 CARVEDILOL (CARVEDILOL) NDC: 52879590269 Coumadin(WARFARIN SOD) 5 MG TAB Dose: 5 MG ORAL DAILY@18 Rx Instructions: As directed by Dr Jerez pending INR results Warfarin Sodium 5 MG Oral Tablet [Coumadin] (RxNorm): 750359 Coumadin (WARFARIN SOD) NDC: 49024413276 Glycolax(POLYETHYLENE GLYCOL) 17 GM POWDER Dose: 17 GM ORAL DAILY Glycolax (POLYETHYLENE GLYCOL) NDC: 61977829113 Cozaar(LOSARTAN POTASSIUM) 25 MG TAB Dose: 25 MG ORAL DAILY Cozaar (LOSARTAN POTASSIUM) NDC: 84995567318 HYDROcodone BIT/ACETAMINOPHEN 5-325 MG(HYDROcodone BIT/ACETAMINOPHEN) 1 EACH TABLET Dose: 1-2 TAB ORAL Q4H MODERATE PAIN Acetaminophen 325 MG / Hydrocodone Bitartrate 5 MG Oral Tablet (RxNorm): 841097 HYDROcodone BIT/ACETAMINOPHEN 5-325 MG (HYDROcodone BIT/ACETAMINOPHEN) NDC: 82202098234 COLACE(DOCUSATE SODIUM) 100 MG CAPSULE Dose: 100 MG ORAL TWICE A DAY Docusate Sodium 100 MG Oral Capsule [Colace] (RxNorm): 8711465 COLACE (DOCUSATE SODIUM) NDC: 68447257061 Flexeril(CYCLOBENZAPRINE HCL) 10 MG TAB Dose: 10 MG ORAL 3 TIMES A DAY PAIN Cyclobenzaprine hydrochloride 10 MG Oral Tablet (RxNorm): 684398 Flexeril (CYCLOBENZAPRINE HCL) NDC: 05972876854 Inpatient/Ordered Medications - Medications administered during hospital visit Visit/Account #[id number] (March 22, 2015 5:05am - March 26, 2015 3:41pm) Medication Route Sig/Schedule Precondition/Indication Comments/Instructions Codes IV Medication Carriers: ANCEF 2 GM/50 ML(CEFAZOLIN SODIUM/NORMAL SALINE) 2 GM/50 ML INJECTION Dose: 50 ML INTRAVEN .PREOP.Q4H (Rate: 100 MLS/HR Duration: 30 MIN) Clinical Indication: ABX Preop Prophylaxis Label Comments: within 1 hour prior to surgical incision, to be given by anesthesia. Repeat 4 hours into procedure. MARCAINE 0.25% MPF INJ(BUPIVACAINE) 30 ML INJECTION Dose: 90 ML Route .[facility] Bupivacaine Hydrochloride 2.5 MG/ML Injectable Solution (RxNorm): 7084739 MARCAINE 0.25% MPF INJ (BUPIVACAINE) NDC: 77202127088 VERSED INJ(MIDAZOLAM HCL) 2 MG/2 ML INJECTION Dose: 2 ML INTRAVEN .PSCU.PAULIE 2 ML Midazolam 1 MG/ML Injection (RxNorm): 6577271 VERSED INJ (MIDAZOLAM HCL) NDC: 81555312249 IV Medication Carriers: NORMOSOL-R PH 7.4(PARENTERAL ELECTROLYTES) 1000 ML INJECTION Dose: 1000 ML INTRAVEN .Q10H (Rate: 100 MLS/HR Duration: 10 HR) Label Comments: until 0600 first postop day Normosal-R and Plasmalyte A will be interchangable Carriers: Magnesium Chloride 0.68222 MEQ/ML / Potassium Chloride 0.0497 MEQ/ML / Sodium Acetate 0.0163 (RxNorm): 377202 NORMOSOL-R PH 7.4 (PARENTERAL ELECTROLYTES) NDC: 82743246300 IV Medication Carriers: NORMOSOL-R PH 7.4(PARENTERAL ELECTROLYTES) 1000 ML INJECTION Dose: 1000 ML INTRAVEN .Q24H (Rate: 20 MLS/HR Duration: 24 HR) Label Comments: starting at 0600 first postop day Normosal-R and Plasmalyte A will be interchangable Carriers: Magnesium Chloride 0.29899 MEQ/ML / Potassium Chloride 0.0497 MEQ/ML / Sodium Acetate 0.0163 (RxNorm): 322905 NORMOSOL-R PH 7.4 (PARENTERAL ELECTROLYTES) NDC: 84566609043 NORCO 5-325(HYDROcodone BIT/ACETAMINOPHEN) 1 TAB TAB Dose: 0 TAB ORAL Q4H PRN Reason: MODERATE PAIN Label Comments: Do not exceed 4000 mg of total acetaminophen per 24 hours Special Dose Instructions: 1-2 TABS Acetaminophen 325 MG / Hydrocodone Bitartrate 5 MG Oral Tablet (RxNorm): 036768 NORCO 5-325 (HYDROcodone BIT/ACETAMINOPHEN) NDC: 28221206668 IV Medication Carriers: NEXTERONE DRIP(AMIODARONE IN DEXTROSE,ISO-OSM) 360 MG/200 ML INJECTION Dose: 200 ML INTRAVEN .Q0M (Rate: 0 MLS/HR Duration: 0 SEC) PRN Reason: CONTINUOUS IV Label Comments: CONC: 1.8 mg/mL. <<use 0.22 Microon IN-LINE filter>> Carriers: 200 ML Amiodarone hydrochloride 1.8 MG/ML Injection [Nexterone] (RxNorm): 8176058 NEXTERONE DRIP (AMIODARONE IN DEXTROSE,ISO-OSM) NDC: 03074153935 IV Medication Carriers: ANCEF 2 GM/50 ML(CEFAZOLIN SODIUM/NORMAL SALINE) 2 GM/50 ML INJECTION Dose: 50 ML INTRAVEN Q8H (Rate: 100 MLS/HR Duration: 30 MIN) Clinical Indication: ABX Surgical Postop Label Comments: refrigerate ZOFRAN INJ(ONDansetron HCL) 4 MG/2 ML INJECTION Dose: 2 ML INTRAVEN Q6H PRN Reason: NAUSEA/VOMITING Ondansetron 2 MG/ML Injectable Solution (RxNorm): 744958 ZOFRAN INJ (ONDansetron HCL) NDC: 22867217023 PROTONIX(PANTOPRAZOLE SOD) 40 MG TAB Dose: 40 MG ORAL 60 MIN BEFORE BKFST Label Comments: use IV if unable to take PO . *For stress ulcer prophylaxis from surgery and aspirin use* pantoprazole 40 MG Delayed Release Oral Tablet [Protonix] (RxNorm): 693367 PROTONIX (PANTOPRAZOLE SOD) NDC: 41903617665 HEPARIN PF 5000 UNIT/0.5 ML SYRINGE Dose: 0.5 ML SUBCUTANEOUSLY EVERY 8 HOURS 0.5 ML heparin sodium, porcine 17941 UNT/ML Cartridge (RxNorm): 8703596 (HEPARIN PF) NDC: 36585761158 ASPIRIN 81 MG TAB Dose: 81 MG ORAL DAILY Aspirin 81 MG Chewable Tablet (RxNorm): 293979 (ASPIRIN) NDC: 83784179376 IV Medication Carriers: KCL 20 mEq PM(POTASSIUM [...] Potassium Chloride 0.4 MEQ/ML Injectable Solution (RxNorm): 059723 KCL 20 mEq PM (POTASSIUM CHLORIDE) NDC: 73862742029 IV Medication Additives: CALCIUM GLUCONATE 1 GM/10 ML INJECTION Dose: 1 GM Carriers: SODIUM CHLORIDE 50 ML INJECTION Dose: 50 ML INTRAVEN PRN (Rate: 60 MLS/HR Duration: 1 HR) HYPOCALCEMIA Label Comments: If ionized calcium level 1-1.1 mmol/L give 1 gram/50 ml over 1 hour. Recheck serum ionized calcium in AM Additives: 10 ML Calcium Gluconate 100 MG/ML Injection (RxNorm): 6950927 (CALCIUM GLUCONATE) NDC: 42629835543 Carriers: Sodium Chloride 0.154 MEQ/ML Injectable Solution (RxNorm): 220158 (SODIUM CHLORIDE) NDC: 81611533457 IV Medication Carriers: DOBUTREX(DOBUTamine HCL/DEXTROSE) 250 MG/250 ML INJECTION Dose: 250 MG INTRAVEN .Q0M (Rate: 0 MLS/HR Duration: 0 SEC) PRN Reason: CONTINUOUS IV Label Comments: REGULAR STRENGTH: 1000 mcg/mL Expires 24 HRS after package opened Carriers: Dobutamine 1 MG/ML Injectable Solution (RxNorm): 382444 DOBUTREX (DOBUTamine HCL/DEXTROSE) NDC: 37373004995 COUMADIN(WARFARIN SOD) 5 MG TAB Dose: 5 MG ORAL DAILY@18 Warfarin Sodium 5 MG Oral Tablet [Coumadin] (RxNorm): 892549 COUMADIN (WARFARIN SOD) NDC: 33426826251 LIPITOR(ATORVASTATIN) 10 MG TAB Dose: 10 MG ORAL DAILY AT [facility] Label Comments: TERATOGENIC. WOMEN SHOULD NOT HANDLE OR CRUSH. atorvastatin 10 MG Oral Tablet [Lipitor] (RxNorm): 259944 LIPITOR (ATORVASTATIN) NDC: 17643145041 WELLBUTRIN SR(BuPROPion) 150 MG TAB Dose: 150 MG ORAL TWICE A DAY Label Comments: MAY INCREASE FALL RISK 12 HR Bupropion Hydrochloride 150 MG Extended Release Oral Tablet [Wellbutrin ] (RxNorm): 100049 WELLBUTRIN SR (BuPROPion) NDC: 58024620839 PROzac(FLUoxetine HCL) 20 MG CAP Dose: 20 MG ORAL DAILY Label Comments: MAY INCREASE FALL RISK Fluoxetine 20 MG Oral Capsule (RxNorm): 859138 PROzac (FLUoxetine HCL) NDC: 24467035225 FLEXERIL(CYCLOBENZAPRINE HCL) 10 MG TAB Dose: 10 MG ORAL 3 TIMES A DAY PRN Reason: PAIN Label Comments: MAY INCREASE FALL RISK Cyclobenzaprine hydrochloride 10 MG Oral Tablet (RxNorm): 795520 FLEXERIL (CYCLOBENZAPRINE HCL) NDC: 39309157008 XYLOCAINE 2% INJ(LIDOCAINE) 1000 MG/50 ML INJECTION Dose: 1000 MG Route .STK-MED Lidocaine Hydrochloride 20 MG/ML Injectable Solution (RxNorm): 0998189 XYLOCAINE 2% INJ (LIDOCAINE) NDC: 47499987655 COZAAR(LOSARTAN POTASSIUM) 25 MG TAB Dose: 25 MG ORAL DAILY Label Comments: MAY INCREASE FALL RISK Losartan Potassium 25 MG Oral Tablet (RxNorm): 926720 COZAAR (LOSARTAN POTASSIUM) NDC: 69835193401 COLACE(DOCUSATE SODIUM) 100 MG CAP Dose: 100 MG ORAL DAILY Docusate Sodium 100 MG Oral Capsule (RxNorm): 4827833 COLACE (DOCUSATE SODIUM) NDC: 21424005264 COUMADIN(WARFARIN SOD) 2 MG TAB Dose: 2 MG ORAL DAILY@18 Warfarin Sodium 2 MG Oral Tablet [Coumadin] (RxNorm): 643615 COUMADIN (WARFARIN SOD) NDC: 55455337233 COLACE(DOCUSATE SODIUM) 100 MG CAP Dose: 100 MG ORAL TWICE A DAY Docusate Sodium 100 MG Oral Capsule (RxNorm): 1308362 COLACE (DOCUSATE SODIUM) NDC: 89197689761 MIRALAX(POLYETHYLENE GLYCOL) 17 GM POWDER Dose: 17 GM ORAL DAILY Label Comments: Dissolve in 8 oz of water POLYETHYLENE GLYCOL 3350 142 MG/ML Oral Solution [Miralax] (RxNorm): 641253 MIRALAX (POLYETHYLENE GLYCOL) NDC: 87389364053 TYLENOL(ACETAMINOPHEN) 325 MG TAB Dose: 650 MG ORAL Q4H PRN Reason: MILD PAIN/TEMPERATURE Acetaminophen 325 MG Oral Tablet (RxNorm): 566135 TYLENOL (ACETAMINOPHEN) NDC: 26470497580 COUMADIN(WARFARIN SOD) 5 MG TAB Dose: 5 MG ORAL DAILY@18 Warfarin Sodium 5 MG Oral Tablet [Coumadin] (RxNorm): 779142 COUMADIN (WARFARIN SOD) NDC: 00726461567 Discharge Medications - Medications that patient should continue to take. Review with physician Visit/Account #[id number] (March 22, 2015 5:05am - March 26, 2015 3:41pm) Medication Route Sig/Schedule Precondition/Indication Comments/Instructions Codes LIPITOR(ATORVASTATIN) 10 MG TAB Dose: 10 MG ORAL DAILY AT [facility] atorvastatin 10 MG Oral Tablet [Lipitor] (RxNorm): 767957 LIPITOR (ATORVASTATIN) NDC: 50547835282 WELLBUTRIN SR(BuPROPion HCL) 150 MG TAB Dose: 150 MG ORAL TWICE A DAY 12 HR Bupropion Hydrochloride 150 MG Extended Release Oral Tablet [Wellbutrin ] (RxNorm): 168698 WELLBUTRIN SR (BuPROPion HCL) NDC: 27614651550 ECOTRIN(ASPIRIN) 81 MG TABLET.DR Dose: 81 MG ORAL DAILY ECOTRIN (ASPIRIN) NDC: 22457625409 PROZAC(FLUoxetine HCL) 20 MG CAPSULE Dose: 20 MG ORAL DAILY Fluoxetine 20 MG Oral Capsule [Prozac] (RxNorm): 395540 PROZAC (FLUoxetine HCL) NDC: 32162205348 Coumadin(WARFARIN SOD) 5 MG TAB Dose: 5 MG ORAL DAILY@18 Rx Instructions: As directed by Dr Jerez pending INR results Warfarin Sodium 5 MG Oral Tablet [Coumadin] (RxNorm): 510593 Coumadin (WARFARIN SOD) NDC: 35307986032 Glycolax(POLYETHYLENE GLYCOL) 17 GM POWDER Dose: 17 GM ORAL DAILY Glycolax (POLYETHYLENE GLYCOL) NDC: 28029371820 Cozaar(LOSARTAN POTASSIUM) 25 MG TAB Dose: 25 MG ORAL DAILY Cozaar (LOSARTAN POTASSIUM) NDC: 75797197881 HYDROcodone BIT/ACETAMINOPHEN 5-325 MG(HYDROcodone BIT/ACETAMINOPHEN) 1 EACH TABLET Dose: 1-2 TAB ORAL Q4H MODERATE PAIN Acetaminophen 325 MG / Hydrocodone Bitartrate 5 MG Oral Tablet (RxNorm): 367915 HYDROcodone BIT/ACETAMINOPHEN 5-325 MG (HYDROcodone BIT/ACETAMINOPHEN) NDC: 40221524034 COLACE(DOCUSATE SODIUM) 100 MG CAPSULE Dose: 100 MG ORAL TWICE A DAY Docusate Sodium 100 MG Oral Capsule [Colace] (RxNorm): 9938560 COLACE (DOCUSATE SODIUM) NDC: 52177228010 Flexeril(CYCLOBENZAPRINE HCL) 10 MG TAB Dose: 10 MG ORAL 3 TIMES A DAY PAIN Cyclobenzaprine hydrochloride 10 MG Oral Tablet (RxNorm): 608106 Flexeril (CYCLOBENZAPRINE HCL) NDC: 81657872721 History Of Encounters Encounters Visit/Account #[id number] (March 22, 2015 5:05am - March 26, 2015 3:41pm) Account Status Physican Of Record Reason For Visit Visit Diagnosis Start Date/Time Stop Date/Time IN AVTAR ROBB MD MITRAL INSUFF/ I34.0 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 Mar 22, 2015 5:05am Mar 26, 2015 3:41pm History of Procedures Procedure List Visit/Account #[id number] (March 22, 2015 5:05am - March 26, 2015 3:41pm) Code/Procedure Date 80JI0BX: REPLACEMENT OF MITRAL VALVE WITH SYNTH SUB, OPEN APPROACH March 22, 2015 9J77997: ASSIST WITH CARDIAC OUTPUT USING BALLOON PUMP, CONTINUOUS March 22, 2015 44NT6LX: REMOVAL OF SYNTHETIC SUBSTITUTE FROM HEART, OPEN APPROACH March 22, 2015 [id number]: RELEASE RIGHT LUNG, OPEN APPROACH March 22, 2015 [id number]: REMOVAL OF INTRALUM DEV FROM GREAT VESSEL, OPEN APPROACH March 23, 2015 [id number]: INSERTION OF INFUSION DEV INTO R RADIAL ART, PERC APPROACH March 22, 2015 [id number]: INSERTION OF INFUSION DEV INTO SUP VENA CAVA, PERC APPROACH March 22, 2015 [id number]: ULTRASONOGRAPHY OF RIGHT AND LEFT HEART, TRANSESOPHAGEAL March 22, 2015 Discharge Instructions Discharge Instructions Visit/Account #[id number] (March 22, 2015 5:05am - March 26, 2015 3:41pm) DISCHARGE INSTRUCTIONS Physician Documentation PROVIDER INSTRUCTIONS Other Discharge Diet Low Salt, low fat, extra protein Discharge Activity/Weight Bearing Status Wear Life Vest 1. When sitting, use a reclining position with legs elevated. Don't sit longer than 2 hours at a time. 2. Do not lift objects heavier than 10 pounds the first 2 weeks after surgery. You may progress by 10 pounds every two weeks. 3. Discuss your return to driving with your cardiac surgeon at your 3 week clinic visit. When riding in a vehicle, sit in the back where there is no airbag. Buckle around your heart pillow. 4. As a general rule, you will return to work in 30-60 days, depending on the type of work you do. Discuss your return to work with your surgeon at your 3 week clinic visit. 5. Walking is an important part of recovery. Outpatient Cardiac Rehab will instruct you on a safe exercise plan. Avoid physical activity outdoors if the temperature is below 35 degrees or if the wind chill makes the temperature less than 35 degrees. Avoid temperatures above 85 degrees or humidity greater than 80 percent. Exercise in an indoor area during these temperature extremes. 6. Go to outpatient Cardiac Rehab. They will call you at home to set up your first appointment. Other Discharge Instructions Diet 1. You may not have a good appetite for a few weeks. It is important to eat several small meals with extra protein each day. Don't add table salt to your meals or eat foods high in salt. (See your cardiac notebook for more information). Bowels 1. Your bowel habits should return to your usual schedule, but post-operative constipation can be an issue. You should take Colace (ducosate sodium) 1-2 pills a day until you are done taking the prescription pain medicine. Milk of Magnesia can be taken occasionally to help you return to your normal pattern. Other 1. Use your breathing device (incentive spirometry) at least 4 times a day for 1 week. Continue to cough and deep breathe to help prevent pneumonia. Use your pillow for support. 2. Wear your support hose during waking hours until you see your surgeon in the clinic at your 3 week post-op visit. It is normal to have a little swelling in your leg with the incision, but if the swelling becomes severe, call your surgeon's office. 3. If you smoke, you must stop now. Evidence shows that smoking contributes to early graft closure. Follow the information given to you in your smoking cessation packet. Other Discharge Diet Low Salt, low fat, extra protein Discharge Activity/Weight Bearing Status Wear Life Vest 1. When sitting, use a reclining position with legs elevated. Don't sit longer than 2 hours at a time. 2. Do not lift objects heavier than 10 pounds the first 2 weeks after surgery. You may progress by 10 pounds every two weeks. 3. Discuss your return to driving with your cardiac surgeon at your 3 week clinic visit. When riding in a vehicle, sit in the back where there is no airbag. Buckle around your heart pillow. 4. As a general rule, you will return to work in 30-60 days, depending on the type of work you do. Discuss your return to work with your surgeon at your 3 week clinic visit. 5. Walking is an important part of recovery. Outpatient Cardiac Rehab will instruct you on a safe exercise plan. Avoid physical activity outdoors if the temperature is below 35 degrees or if the wind chill makes the temperature less than 35 degrees. Avoid temperatures above 85 degrees or humidity greater than 80 percent. Exercise in an indoor area during these temperature extremes. 6. Go to outpatient Cardiac Rehab. They will call you at home to set up your first appointment. Other Discharge Instructions Diet 1. You may not have a good appetite for a few weeks. It is important to eat several small meals with extra protein each day. Don't add table salt to your meals or eat foods high in salt. (See your cardiac notebook for more information). Bowels 1. Your bowel habits should return to your usual schedule, but post-operative constipation can be an issue. You should take Colace (ducosate sodium) 1-2 pills a day until you are done taking the prescription pain medicine. Milk of Magnesia can be taken occasionally to help you return to your normal pattern. Other 1. Use your breathing device (incentive spirometry) at least 4 times a day for 1 week. Continue to cough and deep breathe to help prevent pneumonia. Use your pillow for support. 2. Wear your support hose during waking hours until you see your surgeon in the clinic at your 3 week post-op visit. It is normal to have a little swelling in your leg with the incision, but if the swelling becomes severe, call your surgeon's office. 3. If you smoke, you must stop now. Evidence shows that smoking contributes to early graft closure. Follow the information given to you in your smoking cessation packet. CARE MANAGEMENT/HOME HEALTH Care Management Please fax record of INRs done at [facility] to Dr Talbert office at [phone] WOUND/INCISION/CATHETER CARE Incision/Wound Care 1. Shower daily. Clean incisions with soap and water, pat dry with a towel. DO NOT take a tub bath until your incisions are completely healed. If your incisions are draining clear or light color drainage, use gauze and paper tape to cover the draining area. Report to your surgeon any signs of redness, warmth, pain, and drainage with pus at your incision site. If your wounds are not draining you may use lotion on your skin. 2. Your chest incision has a skin adhesive to hold skin edges together. The film will usually remain in place for 5-10 days. Have the adhesive removed before your 3 week clinic visit with the surgeon. You may have small tapes across other incisions. Wash daily with soap and water. As they become loose, you may gently remove the strips with warm water. Have the tapes removed before your 3 week clinic follow-up with the surgeon. 3. Women are encouraged to wear their bras to help lessen the stress placed on the chest incision. You can pad your incision with gauze or tissue to prevent any rubbing that occurs. REASON TO CALL PROVIDER Notify Physician if: Fever greater 100.5, chills,night sweats Signs or sysmptoms of infection Question or concerns FOLLOW UP APPOINTMENTS Follow Up With Cardiac rehab in 5-[address] of choice. Dr Robb in 4 weeks. They will mail you the appointment. [phone]) Dr Jerez at 1000 for staple removal and followup. Dr Mendes in 12 weeks. *Please call sunday and make this appt* ([phone]) Follow Up PT/INR: Sunday Social History Social History No Social History Data. Immunizations Immunizations Patient Unit Number: [id number] Immunizations No immunizations recorded.
--- OUTSIDE RECORDS SUMMARY | 2016-07-25 19:52 | XMS REPORT | Continuity of Care Document ---
Author Author [facility] Address Unknown Phone Unavailable Allergies Active Description Code Type Severity Reaction Onset Reported/Identified Relationship to Patient Clinical Status Yes No Known Drug Allergies [id number] Drug Allergy Unknown N/ A 03/22/2013 Yes Iodinated Contrast Media - IV Dye [id number] Drug Allergy Moderate Rash 11/25/2014 Yes latex [id number] Drug Allergy Mild rash 03/06/2015 Medications Problems [...] MACY REYES MD Ot 429.9 11/26/2014 EVA HBATIA MD Ot 401.9 11/26/2014 EVA BHATIA MD [...] 03/06/2015 EVA BHATIA MD Ot R51 03/23/2015 MCAY REYES MD Ot I34.0 03/23/2015 MACY REYES MD Ot I51.9 03/23/2015 MACY REYES MD Ot R05 03/23/2015 MACY REYES MD Ot R06.00 Procedures Results Encounters ACCT No. Visit Date/Time Discharge Status Pt. Type Provider Facility Loc./Unit Complaint [id number] 03/06/2015 21:57:00 2015 23:52:00 DIS Emergency JANNETTE YIN, [facility] ED [id number] 02/04/2015 10:38:00 2014 23:59:59 CLS Outpatient GATO BOUDREAUX MD, [facility] [id number] 01/17/2015 20:27:00 2014 01:21:00 DIS Emergency FRANKLIN YIN, HANNAH Garzon [facility] ED [id number] 12/04/2014 09:30:00 2014 23:59:59 CLS [facility] [id number] 10/30/2014 09:30:00 2014 00:01:00 [id number] 11/26/2014 01:50:00 2014 23:59:59 CLS Outpatient JANNETTE YIN, [facility] [id number] 11/25/2014 22:58:00 2014 02:10:00 DIS Emergency JANNETTE YIN, [facility] ED [id number] 10/26/2014 09:35:00 2014 23:59:59 CLS Outpatient GATO BOUDREAUX MD, [facility] LAB [id number] 09/17/2014 10:54:00 2014 23:59:59 CLS Outpatient GATO BOUDREAUX MD, [facility] LAB [id number] 09/13/2014 20:25:00 2014 23:13:00 DIS Emergency FILIPPO YIN, JANNIE Shameka [facility] ED [id number] 03/22/2013 08:28:00 2013 09:40:00 DIS Emergency EDGARDO YIN, CESAR Ficth [facility] ED
[2016-07-25 19:56] LABS: BASOPHILS # (AUTO) 0.1 T/MM3 (0-0.2); BASOPHILS % (AUTO) 0.5 % (0-2); EOSINOPHILS # (AUTO) 0.2 T/MM3 (0-0.5); EOSINOPHILS % (AUTO) 1.8 % (0-4); HCT - HEMATOCRIT 39.7 % (36-46); HGB - HEMOGLOBIN 12.9 GM/DL (12-16); IMMATURE GRANULOCYTE # (AUTO) 0.03 T/MM3 (0.00-0.03); IMMATURE GRANULOCYTE % (AUTO) 0.3 % (0.0-0.5); LYMPHOCYTES # (AUTO) 3.4 T/MM3 (1-4.8); MEAN CORPUSCULAR HGB 29.9 UUG (26-34); MEAN CORPUSCULAR HGB CONC(MCHC 32.5 GM/DL (31-37); MEAN CORPUSCULAR VOLUME 91.9 UM3 (80-100); MEAN PLATELET VOLUME 10.3 UM3 (9.4-12.4); MONOCYTES # (AUTO) 0.5 T/MM3 (0-0.8); MONOCYTES % (AUTO) 4.7 % (0-9.0); NEUTROPHILS #(AUTO)-ABSOLUTE 6.8 T/MM3 (1.8-7.7); NEUTROPHILS % (AUTO) 61.7 % (33-66); RED BLOOD COUNT 4.32 M/MM3 (4.00-5.20); WBC - WHITE BLOOD COUNT 11.1 T/MM3 (4.5-11.0)
--- NOTE | 2016-07-25 19:56 | NUR ---
TO XRAY VIA CART
--- NOTE | 2016-07-25 19:58 | ERPDOC ---
Departure Disposition Decision Date: July 25, 2016 Disposition Decision Time: 21:21 Disposition: 01 DISCHARGED HOME, SELF-CARE Impression Impression Impression: Primary Impression: Congestive heart failure Congestive heart failure type: systolic Congestive heart failure chronicity: acute on chronic Qualified Codes: I50.23 - Acute on chronic systolic ( congestive) heart failure Additional Impressions: Congestive cardiomyopathy Fluid retention Severity: Severe Condition: Improved Seen By: Physician only Patient Instructions[place] [facility] [place]est[place] Heart Failure Problems/Meds/Labs Reviewed?: Yes Medications reviewed and manag: Yes Additional Instructions: Take Lasix 80mg two times daily for three days. Call Dr. Morales to update. Follow up care ordered?: Yes Mental Status: Alert HPI - Chest Pain General Chief Complaint: Chest Pain Stated Complaint: CHEST PAIN/FLUID RETENTION Time Seen by Provider: 19:47 Source: patient, family Exam Limitations: no limitations HPI - Chest Pain Initial Comments Pt presents with sharp substernal chest pain, shortness of breath, cough, and weight gain consistent with her CHF exacerbations. 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 Pt also has AICD for frequent PVC's. Pt is traveling from [place] to visit family, and has had weight gain with travel. Today she began having worsening sx with chest pain. Pt is already taking Lasix 80mg daily and Spironolactone 25mg daily. EF 25% Occurred At: home Onset/Timing: Gradual Duration: 1 hr, 1 week Activities at Onset/Context: none Location: substernal Quality: sharp Chest Pain Radiation: no radiation Nitro Today/Relief: 0.4 mg x 1, provided by ED Aspirin Treatment Today: 81 mg x 1, provided at home Prior Chest Pain/Cardiac Lane: other (Pulmonary Edema) Allergies: Coded Allergies: morphine (Verified Allergy, Intermediate, VOMITING, 07/25/16) Iodinated Contrast Media - Oral and (Verified Allergy, Mild, RASH, 07/25/16 ) latex (Verified Allergy, Mild, RASH, 07/25/16) Past History Patient Medical History Problem List Updates: Congestive Cardiomyopathy Mitral valve failure Hypotension Patient Surgical History mitral valve replacement, Mechanical Mitral Valve. Past Medical History Cardiac: CHF Surgical History Cardiac: implantable defib, valve replacement Social History Smoking Status: Current every day smoker Does patient use chewing tobac: No Second Hand Exposure: No Substance Use Type: does not use Alcohol Intake: none Record Review Pertinent history updated: Yes Review of Systems Constitutional Constitutional: DENIES: appetite decrease, appetite increase, chills, dizziness , fever, weakness ENMT Ears: DENIES: pain Hearing: DENIES: hearing loss, tinnitus Balance: DENIES: vertigo Mouth/Throat: DENIES: change in swallowing, change in voice, hoarsness, painful swallowing, sore throat Cardiovascular Cardiac: chest pain, DENIES: dyspnea on exertion Rhythm/Rate: DENIES: irregular beat, palpitations, tachycardia Vascular: DENIES: pedal edema Pulmonary Respiratory: cough, dyspnea, DENIES: pleuritic chest pain GI Upper Abdomen: DENIES: dysphagia, heartburn/indigestion, nausea, pain, vomiting Lower Abdomen: DENIES: blood in stool, constipation, diarrhea, pain General: DENIES: burning, dysuria, frequency, pain, urgency Musculoskeletal General: DENIES: cramps, joint pain, joint swelling, pain, weakness Integumentary Skin: DENIES: rash, sores Neurological General: DENIES: headache, numbness, tingling, vertigo, weakness Psychiatric Psychiatric: DENIES: anxiety, depression, nervousness Physical Exam General General Nourishment: well nourished, well developed, appears stated age, no acute distress General Body Habitus: well groomed Vitals and Pain First Documented Vital Signs Date Time Temp Pulse Resp B/P Pulse Ox O2 Delivery O2 Flow Rate FiO2 07/25/16 19:34 98.5 97 18 166/75 99 Room Air Weight: Kilograms: Height (feet): Height (inches): Triage Pain Scale: RN VS reviewed by Provider: Yes Normal Exams: Head: Normocephalic w/o trauma Eyes: Pupils are PERRLA w/ EOMI, No scleral icterus, irritation, or foreign bodies noted ENMT: No facial trauma, nasal exudates, pharyngeal erythema, or exudates are noted Neck: Full range of motion, without adenopathy, JVD, bruits or thyromegaly Chest/Resp: Clear all lacy, with good airflow, and symmetry bilaterally CV: Regular rate and rhythm, without murmur or gallop, Pulses 2+ all extremities, capillary refill, <2 seconds all ext., no pedal edema noted Abdomen: Bowel sounds positive, soft, non-tender, non-distended, no hepatosplenomegaly, masses or bruits noted Musculoskeletal: No tenderness, or deformity noted, good range of motion, all extremities Integumentary: No rashes, hives, or bruising noted, hair and nails, without abnormality Neurologic: Patient is alert, and oriented, cranial nerves, motor/sensory/ cerebellar, exams w/o gross deficits, to observation Psychiatric: Patient exhibits, appropriate attention, emotion and affect Lymphatic (brief) Lymphatic Brief: FOUND: lymphedema (2+ pitting bilateral LE. ) Progress Results/Orders Orders Procedure Category Date Status Time Iv Lock (Ed Only) EDM 07/25/16 Transmitted 19:47 Cbc W/Auto LAB 07/25/16 Complete Diff-Reflex Manual Cmp - Comprehensive LAB 07/25/16 Complete Metabolic Probnp LAB 07/25/16 Complete 19:47 Chest, Pa & Lateral RAD 07/25/16 Taken Lactate - Lactic Acid LAB 07/25/16 Complete Troponin I W LAB 07/25/16 Complete Hemolysis Index EKG EKG 07/25/16 Taken Nitroglycerin PHA 07/25/16 Complete (Nitrostat) 20:00 Aspirin *Ec* (Ecotrin) PHA 07/25/16 Complete 20:00 Nitroglycerin PHA 07/25/16 Complete Ointment (Nitro-Bid) 20:15 Furosemide (Lasix) PHA 07/25/16 Complete 20:45 Lab Results Laboratory Tests Test 07/25/16 19:48 White Blood Count 11.1T/MM3 Red Blood Count 4.32M/MM3 Hemoglobin 12.9GM/DL Hematocrit 39.7% Mean Corpuscular Volume 91.9UM3 Mean Corpuscular Hemoglobin 29.9UUG Mean Corpuscular Hemoglobin Concent 32.5GM/DL RDW Standard Deviation 51.1FL Platelet Count 248T/MM3 Mean Platelet Volume 10.3UM3 Immature Granulocyte % (Auto) 0.3% Neutrophils (%) (Auto) 61.7% Lymphocytes (%) (Auto) 31.0% Monocytes (%) (Auto) 4.7% Eosinophils (%) (Auto) 1.8% Basophils (%) (Auto) 0.5% Absolute Immature Granulocyte (auto 0.03T/MM3 Absolute Neutrophils (auto) 6.8T/MM3 Absolute Lymphocytes (auto) 3.4T/MM3 Absolute Monocytes (auto) 0.5T/MM3 Absolute Eosinophils (auto) 0.2T/MM3 Absolute Basophils (auto) 0.1T/MM3 Turbidity 21 Sodium Level 145MEQ/L Potassium Level 4.2MEQ/L Chloride Level 109MEQ/L Carbon Dioxide Level 25MEQ/L Anion Gap 11MEQ/L Blood Urea Nitrogen 15.0MG/DL Creatinine 1.0MG/DL Glomerular Filtration Rate Calc 61 BUN/Creatinine Ratio 15RATIO Glucose Level 101MG/DL Calculated Osmolality 280MOSM/KG Calcium Level 9.0MG/DL Total Bilirubin 0.30MG/DL Icterus Index < 2 Aspartate Amino Transf (AST/SGOT) 21U/L Alanine Aminotransferase (ALT/SGPT) 39U/L Alkaline Phosphatase 137U/L Troponin I 0.048ng/ml EV-Ciw-S-Type Natriuretic Peptide 1940PG/ML Total Protein 6.8G/DL Albumin 4.2G/DL Globulin 2.6G/DL Albumin/Globulin Ratio 1.6RATIO Plasma Lactate 1.4MMOL/L Chemistry Specimen Hemolysis < 15 Medications Current ED Medications Nitroglycerin (Nitrostat) 0.4 mg O ONCE SL Last administered on 07/25/16 19: 46; Start 07/25/16 at 20:00; Stop 07/25/16 at 20:01; Status DC Aspirin (Ecotrin) 243 mg O ONCE PO Last administered on 07/25/16 19:41; Start 07/25/16 at 20:00; Stop 07/25/16 at 20:01; Status DC Nitroglycerin (Nitro-Bid) 1 inch O ONCE TOP Last administered on 07/25/16 20: 05; Start 07/25/16 at 20:15; Stop 07/25/16 at 20:16; Status DC Furosemide (Lasix) 80 mg O ONCE IV Last administered on 07/25/16 20:49; Start 07/25/16 at 20:45; Stop 07/25/16 at 20:46; Status DC Progress Progress EKG - NSR with bigiminal PVC's, typical for the patient. No other ischemia STEMI cbc -n cmp - n trop -n cxr - Mild diffuse infiltrative pattern only. bnp - mod elevated 1900+ No change with nitro sl - 1" paste placed - no change. Pt declines med for pain. 2029 - Paged the patient's insulation foreman Phlebotomist Supervisor/Instructor in [facility], Dr. Man (for Dr. Morales) - No call back. Pt given 80mg Lasix IV - Improving. Pt would prefer home treatment instead of hospitalization. Will double lasix dose for three days and follow up with Dr. Morales by phone tomorrow. YO MARTINEZ MD July 25, 2016 19:58
[2016-07-25] MEDS ORDERED: NITROGLYCERIN 0.4 MG SUBLINGUAL TABLET SL ONE (20:00)
[2016-07-25] MEDS ORDERED: ASPI-557 PO (20:00)
[2016-07-25] MEDS ORDERED: ASPIRIN *EC* 81mg TABLET PO ONE (20:00)
[2016-07-25] MEDS ORDERED: SPIR25TA4 PO (20:00)
[2016-07-25] MEDS ORDERED: CARV6.25 PO (20:00)
[2016-07-25] MEDS ORDERED: RAMI10CA24 PO (20:00)
[2016-07-25] MEDS ORDERED: FURO-153 PO (20:00)
--- NOTE | 2016-07-25 20:00 | NUR ---
RETURN FROM XRAY
[2016-07-25] MEDS ORDERED: ATOR40TA64 PO (20:02)
[2016-07-25] MEDS ORDERED: WARF10TA4 PO (20:02)
[2016-07-25] MEDS ORDERED: BUPR150T3 PO (20:02)
[2016-07-25 20:11] LABS: LACTATE - LACTIC ACID 1.4 MMOL/L (0.6-2.2)
[2016-07-25 20:12] LABS: ALBUMIN 4.2 G/DL (3.5-5.0); ALBUMIN/GLOBULIN RATIO 1.6 RATIO (1.1-2.2); ALKALINE PHOSPHATASE 137 U/L (38-126); ALT (SGPT) 39 U/L (9-52); ANION GAP 11 MEQ/L (5-15); AST (SGOT) 21 U/L (14-36); BUN/CREATININE RATIO 15 RATIO (6-26); CHLORIDE 109 MEQ/L (98-107); CO2 - CARBON DIOXIDE 25 MEQ/L (22-30); GLOMERULAR FILTRATION RATE 61; GLUCOSE 101 MG/DL (65-110); POTASSIUM 4.2 MEQ/L (3.6-5); SODIUM 145 MEQ/L (134-144); TOTAL PROTEIN 6.8 G/DL (6.3-8.2)
[2016-07-25] MEDS ORDERED: NITROGLYCERIN 2% OINTMENT 1 G PACKET TOP ONE (20:15)
[2016-07-25] MEDS ORDERED: FUROSEMIDE 100 MG/10 ML INJECTION IV ONE (20:45)
[2016-07-25 21:35] VITALS: BP 140/63; PULSE 87; RESP 18; O2SAT 95
--- NOTE | 2016-07-26 08:17 | DI ---
INDICATION: ITS.REASON: dyspnea, pulmonary edema PROCEDURE: CHEST 2-VIEWS UPRIGHT (PA \T\ LAT) Encounter: Initial COMPARISON: None FINDINGS: Possible 1.5 similar nodule projecting over the right third anterior rib as it crosses over the fifth rib posteriorly. This is not definitely confirmed on the lateral view. The lungs are otherwise clear without evidence of focal abnormal airspace opacity. There is no pleural effusion or pneumothorax. Poststernotomy changes are present. External defibrillator type lead present. Cardiac valve replacement. Fractured superior and inferior sternotomy wires. The heart size, mediastinal contours and pulmonary vascularity are within normal limits. There is no significant skeletal abnormality. IMPRESSION: 1. No pneumonia or overt congestive failure. 2. Possible right upper lobe pulmonary nodule. Recommend correlation with prior studies. If comparisons are unavailable a noncontrast chest CT is recommended for further evaluation. .
== END 2016-07-25 21:35 | disposition home or self-care (01) ==
LOC: ED 19:34
DX: I50.23 Acute on chronic systolic (congestive) heart failure (principal); I42.0 Dilated cardiomyopathy; R60.9 Edema, unspecified
CPT/HCPCS: 80053; 83605; 83880; 84484; 85025; 93005